=== PATIENT | female | born 1955 | race Caucasian/White ===

== ENCOUNTER 2019-12-08 12:31 | Inpatient (IN) | payer MEDICARE, SELFPAY ==
[2019-12-08 12:35] VITALS: BP 210/109; PULSE 82; RESP 18; O2SAT 97; BMI 38.6
--- NOTE | 2019-12-08 12:45 | ECG_ITS ---
Measurements Intervals [place] Rate: 78 P: 17 WA: 137 QRS: -11 QRSD: 90 T: 5 QT: 375 QTc: 430 SINUS RHYTHM LOW QRS VOLTAGE IN PRECORDIAL LEADS [QRS DEFLECTION < 1.0 mV IN CHEST LEADS] POSSIBLE ANTERIOR MYOCARDIAL INFARCTION , PROBABLY OLD [30 ms Q WAVE IN V3/V4, OR R < 0.2 mV IN V4] No previous ECG available for comparison Electronically Signed On 12-09-2019 18:13:10 CDT by Nazia Glass M.D. [email or web address]
--- NOTE | 2019-12-08 12:47 | ED_ITS ---
HPI - Psych General: Chief Complaint: Psychiatric Symptoms Stated Complaint: manic episode Time Seen by Provider: 12/08/19 12:35 History of Present Illness: HPI Narrative: Patient is a 64 year old female brought in by ambulance today for jc. She reports that she is hearing voices and can say the things that people on TV are saying at the say time that they do. She has pressured and disorganized speech and is crying over things that happened years ago. She is also hypertensive. She thinks that she is getting messages from appliances in her house. She says that a friend told her she is picking up radio transmissions through the fillings in her teeth. complaint: altered mental status Onset (ago): week(s) (at least a week) Duration: getting worse History of same: Yes (per EMS she is known to have a history of jc) Associated symptoms: Reports delusions Review of Systems General: Reports: ROS unobtainable due to mental status Physical Exam Const: COMMON NORMALS: alert EXAM LIMITATIONS: altered mental status GENERAL APPEARANCE: anxious and disheveled NUTRITIONAL APPEARANCE: obese ORIENTATION/CONSCIOUSNESS: Yes confused HENMT: HEAD & SCALP: normal to inspection FACE & SINUS: normal facial exam TEETH & GINGIVA: Yes abnormal tooth and associated gingiva (diffuse dental disease) Eye: GENERAL EYE: appearance normal, both eyes and all related structures CONJUNCTIVA: Yes conjunctival abnormal (injected) Neck/C-Spine: COMMON NORMALS: supple, no meningeal signs and no JVD Chest: COMMONS NORMALS: normal inspection of the chest Resp: COMMON NORMALS: normal respiratory effort, No use of accessory muscles and clear to auscultation bilaterally AUSCULTATION: clear to auscultation bilaterally Cardio: COMMON NORMALS: no JVD, regular rate, regular rhythm and No murmurs present (Cardio) RATE: regular rate RHYTHM: regular rhythm GI: COMMON NORMALS: Normal to inspection, nondistended, normoactive bowel sounds present, Soft to palpation and non-tender INSPECTION: Yes normal to inspection AUSCULTATION: Yes normoactive bowel sounds PALPATION: Yes Soft to palpation Back/Pelvis: COMMON NORMALS: thoracic and lumbar spine normal to inspection Extremity: COMMON NORMALS: normal to inspection Neuro: COMMON NORMALS: moves all extremities, no focal motor deficits and no sensory deficits noted SENSORIUM/ORIENTATION: Yes alert MENINGEAL SIGNS: Yes no meningeal signs Psych: APPEARANCE: Yes unkempt ATTITUDE: Yes bizarre and Yes agitated ACTIVITY/MOTOR BEHAVIOR: Yes psychomotor agitation, Yes disorganized behavior a nd Yes restless SPEECH: Yes excessive and Yes Pressured speech present MOOD & AFFECT: Yes tearful and Yes Labile affect present THOUGHT PROCESS: disorganized and Flight of ideas present THOUGHT CONTENT: Yes delusions and Yes Hallucination(s) present INSIGHT: Poor insight present (Psych) JUDGEMENT: Poor judgement present (Psych) Skin: COMMON NORMALS: no rashes or lesions noted and turgor normal GENERAL SKIN EXAM: no rashes or lesions noted and turgor normal MDM - Psych Lab Data: Labs: Lab Results 12/08/19 12/08/19 12/08/19 Range/Units 13:04 13:04 13:27 WBC 7.4 (4.0-10.0) 10^3/ uL RBC 5.04 (4.1-5.3) 10^6/u L Hgb 15.3 (11.5-15.3) g/dL Hct 47.6 H (37.0-47.0) % MCV 94.4 (81-99) fL MCH 30.4 (28.0-34.0) pg MCHC 32.1 (30.0-36.0) g/dL RDW 12.5 (12.1-15.1) % Plt Count 134 (130-400) 10^3/c mm MPV 9.6 (7.4-10.4) fL Neut % (Auto) 55.3 % Lymph % (Auto) 35.5 % [place] % (Auto) 7.8 % Eos % (Auto) 0.7 % Baso % (Auto) 0.4 % Neut # (Auto) 4.1 (1.8-7.7) 10^3/u L Lymph # (Auto) 2.6 (0.8-4.8) 10^3/u L [place] # (Auto) 0.6 (0.2-0.9) 10^3/u L Eos # (Auto) 0.1 (0.0-0.8) 10^3/u L Baso # (Auto) 0.0 (0.0-0.1) 10^3/u L Nucleated RBC % (a uto) 0 % Nucleated RBCs # 0.0 /100WBC Sodium 140 (136-145) mmol/L Potassium 3.5 (3.5-5.1) mmol/L Chloride 100 (98-107) mmol/L Carbon Dioxide 24 (22-29) mmol/L Anion Gap 19.5 H (5-19) BUN 7 L (8-23) mg/dL Creatinine 0.5 (0.5-0.9) mg/dL GFR Calculation 123.8 (90-130) mL/min Glucose 243 H (65-115) mg/dL Calculated Osmolal ity 294 (285-295) mOsm/k g Calcium 9.5 (8.5-10.5) mg/dL Total Bilirubin 0.9 (0.15-1.2) mg/dL AST 21 (0-32) U/L ALT 23 (0-33) U/L Alkaline Phosphata se 102 (35-105) IU/L Total Protein 6.8 (6.6-8.7) g/dL Albumin 4.2 (3.5-5.2) g/dL Globulin 2.6 (1.3-4.6) g/dL TSH 1.28 (0.27-4.20) uIU/ mL Urine Color Yellow (Yellow) Urine Appearance Hazy A (CLEAR) Urine pH 6 (5-7) Ur Specific Gravit y 1.015 (1.005-1.030) Urine Protein 1+ H (Negative) Urine Glucose (UA) 4+ H (Normal) Urine Ketones 1+ H (Negative) Urine Blood Neg (Negative) Urine Nitrate Negative (Negative) Urine Bilirubin Neg (NEGATIVE) Urine Urobilinogen Norm (Negative) mg/dL Ur Leukocyte Kadie ase Negative (Negative) Urine RBC 0-4 H (0-2) /hpf Urine WBC 0-4 H (0-5) /hpf Ur Squamous Epith Cells 0-4 H (0-5) Urine Bacteria 1+ H (NONE) Salicylates < 0.3 L (3-10) mg/dL Acetaminophen < 5.0 L (10-30) ug/mL Ethyl Alcohol < 10 (0-10) mg/dL EKG Data^: EKG 1: EKG interpretation date: 12/08/19 EKG interpretation time: 13:12 Interpretation: sinus rhythm, rate 78, artifact. No acute ischemia. Normal intervals. Discharge Plan Discharge Patient Disposition: Admitted As Inpatient Admit Provider: Miguel Camejo Clinical Impression: Acute psychosis Condition: Stable Referrals: Connie Kumar MD [Family Provider] - Discharge Date/Time: 12/08/19 15:18 Coding Level of Care Code ED Pressure Testing Technician for Chg Fwd Exam Comprehensive
[2019-12-08 13:12] LABS: Basophils % 0.4 %; Eosinophils # 0.1 10^3/uL (0.0-0.8); Eosinophils % 0.7 %; Hematocrit 47.6 % (37.0-47.0); Hemoglobin 15.3 g/dL (11.5-15.3); Lymphocytes # 2.6 10^3/uL (0.8-4.8); Lymphocytes % 35.5 %; Mean Corpuscular HGB Conc 32.1 g/dL (30.0-36.0); Mean Corpuscular Hemoglobin 30.4 pg (28.0-34.0); Mean Corpuscular Volume 94.4 fL (81-99); Mean Platelet Volume 9.6 fL (7.4-10.4); Monocytes # 0.6 10^3/uL (0.2-0.9); Monocytes % 7.8 %; Neutrophils # 4.1 10^3/uL (1.8-7.7); Neutrophils % 55.3 %; Nucleated Red Blood Cells % 0 %; Platelet Count 134 10^3/cmm (130-400); Red Blood Count 5.04 10^6/uL (4.1-5.3); Red Cell Distribution Width 12.5 % (12.1-15.1); White Blood Count 7.4 10^3/uL (4.0-10.0)
[2019-12-08] MEDS: ziprasidone 20 mg/mL SDV IM (13:33)
[2019-12-08] MEDS: metoprolol tartrate 1 mg/1 mL SDV 5 mL 5 MG IV (13:33)
[2019-12-08 13:53] LABS: Alanine Aminotransferase 23 U/L (0-33); Albumin Level 4.2 g/dL (3.5-5.2); Alkaline Phosphatase 102 IU/L (35-105); Anion Gap 19.5 (5-19); Aspartate Amino Transferase 21 U/L (0-32); Blood Urea Nitrogen 7 mg/dL (8-23); Calcium 9.5 mg/dL (8.5-10.5); Carbon Dioxide 24 mmol/L (22-29); Chloride 100 mmol/L (98-107); Globulin 2.6 g/dL (1.3-4.6); Glomerular Filtration Rate 123.8 mL/min (90-130); Glucose 243 mg/dL (65-115); Osmolality Calculated 294 mOsm/kg (285-295); Potassium 3.5 mmol/L (3.5-5.1); Sodium 140 mmol/L (136-145); Thyroid Stimulating Hormone 1.28 uIU/mL (0.27-4.20); Total Bilirubin 0.9 mg/dL (0.15-1.2); Total Protein 6.8 g/dL (6.6-8.7)
[2019-12-08 13:56] LABS: Acetaminophen < 5.0 ug/mL (10-30); Alcohol Level < 10 mg/dL (0-10); Salicylate < 0.3 mg/dL (3-10)
[2019-12-08 14:28] LABS: Add Urine Microscopic? YES; Bilirubin Urine Neg (NEGATIVE); Blood Urine Neg (Negative); Glucose Urine UA 4+ (Normal); Ketones Urine 1+ (Negative); Leukocyte Esterase Urine Negative (Negative); Nitrate Urine Negative (Negative); Protein Urine 1+ (Negative); Specific Gravity, Urine 1.015 (1.005-1.030); Urine Appearance Hazy (CLEAR); Urine Color Yellow (Yellow); Urobilinogen Urine Norm (Negative); pH Urine 6 (5-7)
[2019-12-08 14:44] LABS: Add Urine Culture? No; Bacteria Urine 1+; RBC Urine 0-4 /hpf (0-2); Squamous Epithelial Cell Urine 0-4 (0-5); WBC Urine 0-4 /hpf (0-5)
[2019-12-08 14:53] VITALS: BP 124/71; PULSE 76; RESP 18; O2SAT 94
--- NOTE | 2019-12-08 14:54 | PC.NURSE ---
PT SLEEPING, RESP EVEN ET UNLABORED.
[2019-12-08 15:12] VITALS: BP 125/85; PULSE 76; RESP 18; O2SAT 94
[2019-12-08 15:36] VITALS: BP 137/73; PULSE 64; RESP 18; TEMP 36.6; O2SAT 96
[2019-12-08 15:40] LABS: Amphetamines Screen Urine Negative (Negative); Barbiturates Screen Urine Negative (Negative); Benzodiazepines Screen Urine Negative (Negative); Cocaine Screen Urine Negative (Negative); Opiate Screen Urine Negative (Negative); PCP Screen Urine Negative (Negative); THC Screen Urine Negative (Negative)
[2019-12-08 15:50] VITALS: BP 137/73; PULSE 64; RESP 18; TEMP 36.6; O2SAT 96
[2019-12-08 19:45] LABS: Glucose Point of Care 158 mg/dL (70-110)
[2019-12-08 21:52] VITALS: BP 169/87; PULSE 75; RESP 23; TEMP 36.8; O2SAT 97
[2019-12-09 05:01] LABS: Glucose Point of Care 187 mg/dL (70-110)
[2019-12-09 06:00] VITALS: BP 154/81; PULSE 100; RESP 26; TEMP 37.1; O2SAT 97
[2019-12-09 07:32] LABS: Glucose Point of Care 192 mg/dL (70-110)
--- NOTE | 2019-12-09 09:53 | PM.NHP ---
Providers/Chief Complaint Admitting Physician: Miguel Camejo MD Chief Complaint: manic episode HPI NPU History of Present Illness Татьяна Vang is a 64 year old female who presents today with a long history of mental health treatment going back some 14 years with [facility]. She presents with some discharge papers from [facility] with the current report of a diagnosis of dementia and recent initiation of donepezil. She presents as a fairly challenging historian as she is fairly frantic and focused on topics that do not make much sense. She continued to report wanting to speak to some zoroastrianism figure stating that somehow their conversation would explain her current circumstance. She was able to talk some about past medications. She has prior diagnoses of ADHD and major depressive disorder recurrent severe. She continued to speak about not being able to focus. We discussed the risks, benefits and alternatives of initiating Invega for her apparent jc and she appeared to understand and agreed to proceed as is documented in this note. Psychiatric history: She endorses the recent hospitalization but could not endorse none other. She has a long history of mental health treatment but seemed to be fairly stable on medications and was functioning fairly. Substance abuse history: She denies significant addiction issues and none were noted the chart reviewed. The remainder of her history was difficult to uncover. We will attempt to get some collateral information with as she is reportedly . Meds NPU Home Medications Medication Instructions Recorded Confirmed Last Taken Type amlodipine 10 mg PO DAILY 12/08/19 12/08/19 Unknown History clonidine HCl 0.1 mg PO BID 12/08/19 12/08/19 Unknown History donepezil 5 mg PO DAILY 12/08/19 12/08/19 Unknown History glipizide 10 mg PO BID 12/08/19 12/08/19 Unknown History insulin aspart U-100 [Novolog See Rx Instructions .ROUTE .COMPLEX 12/08/19 12/08/19 Unknown History U-100 Insulin aspart] insulin detemir U-100 [Levemir 57 unit SUBCUT BID 12/08/19 12/08/19 Unknown History U-100 Insulin] levothyroxine 75 mcg PO DAILY 12/08/19 12/08/19 Unknown History lisinopril 40 mg PO DAILY 12/08/19 12/08/19 Unknown History metformin 1,000 mg PO BID 12/08/19 12/08/19 Unknown History metoprolol tartrate See Rx Instructions .ROUTE .COMPLEX 12/08/19 12/08/19 Unknown History potassium chloride 20 meq PO BID 12/08/19 12/08/19 Unknown History pravastatin 40 mg PO DAILY 12/08/19 12/08/19 Unknown History Allergies Allergy/AdvReac Type Severity Reaction Status Date / Time butorphanol [From Stadol] Allergy Unknown ALGY-Hives Verified 12/08/19 12:46 codeine Allergy ALGY-Rash Verified 12/08/19 12:47 latex Allergy ALGY-Rash Verified 12/08/19 12:47 PFSH NPU PFSH: Medical History (Updated 12/10/19 @ 06:12 by Miguel Camejo MD) HTN (hypertension) Hyperlipidemia Hypothyroidism Insulin dependent diabetes mellitus Morbid obesity Surgical History (Updated 12/09/19 @ 19:33 by Migdalia Neves MD) H/O section x 2 H/O tooth extraction History of dilation and curettage Secondary to missed History of evacuation of hematoma -Abdominal wall Family History (Updated 12/09/19 @ 19:34 by Migdalia Neves MD) Father Carotid artery stenosis Mother Abdominal aortic aneurysm Grandfather Stroke Other Psychiatric illness Social History (Updated 12/09/19 @ 19:35 by Migdalia Neves MD) Smoking and tobacco status: never smoked Alcohol intake: never Substance/Drug Use: never 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 No abnormal movements except for psychomotor agitation. Semicooperative with exam in mild to moderate distress. Speech was increased rate and volume with stuttering due to her rapid speech. Mood described as depressed affect energetic. Thought process disorganized at times thought content: Patient denied any suicidal or homicidal ideation, there were no delusions reported or noted but there were concerns for possible hyperreligious thoughts. She denied any auditory visual hallucinations. Attention and concentration were impaired and memory was unreliable but none were formally tested. She is alert and oriented times person and place. Insight and judgment are impaired. Vitals/I&O/Wt Last Vital Signs Temp 98.9 F 12/09/19 13:39 Pulse 120 H 12/09/19 13:39 Resp 20 H 12/09/19 13:39 BP 180/93 12/09/19 13:39 Pulse Ox 98 05/22/20 13:39 Weight last 48 hrs Weight 102.058 kg Data NPU : 12/08/19 13:04 12/08/19 13:04 A&P Assessment and plan (1) Acute psychosis: This is a 64-year-old white female with a recent hospitalization with a reported diagnosis of dementia and a long history of mood disorder who presents with altered mental status appearing manic open to medication trial. 1. Continue current medication. Except: 2. Initiate Invega 3 mg p.o. q. a.m. 3. Continue to 15-minute checks for safety. 4. Encouraged individual, group and milieu therapy. 5. Get hospitalist consult concerning diabetes management, hypertension management and consideration of a possible UTI. We will follow-up recommendations. Status: Acute (2) Jc: Status: Acute (3) Dementia: Status: Acute Attestations NPU Medical Necessity Statement*: Inpatient hospitalization is medically necessary and the clinically appropriate intervention at this time. We will explore medication options and monitor and make changes as indicated. She will be in the hospital for over 2 midnights. Likely length of stay 4 to 6 days. 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
[2019-12-09 11:37] LABS: Glucose Point of Care 306 mg/dL (70-110)
[2019-12-09 13:39] VITALS: BP 180/93; PULSE 120; RESP 20; TEMP 37.2; O2SAT 98
[2019-12-09 14:19] VITALS: BP 180/93
[2019-12-09] MEDS: cloNIDine 0.1 mg Tablet PO (14:19)
[2019-12-09] MEDS: blistex lip oint 7 gm Tube 1 APPLIC TOPICAL (14:20)
[2019-12-09] MEDS: lisinopril 20 mg Tablet 40 MG PO (14:20)
--- NOTE | 2019-12-09 15:59 | PM.CONSULT ---
Providers/Reason For Consult Consulting Physican/Specialty*: Migdalia Neves MD, Hospitalist Reason for Consult*: Medical management of HTN, IDDM type II Requesting Physcian: Dr. Camejo Attending Physician: Miguel Camejo MD History of Present Illness History of Present Illness Татьяна Vang is a 64 year old female with PMHx of HTN, IDDM type II, Morbid obesity, Hypothyroidism, Hyperlipidemia, presented to the ER yesterday for evaluation of auditory hallucinations, pressured rapid speech, emotional lability and delusions. She was then admitted directly to NPU where she has been managed by psychiatry. Hospitalist consult is requested today due to noted hypertension and poorly controlled blood glucose. Patient is evaluated in NPU and is difficult to keep on track during history taking. She has rapid and pressured speech, admits to hearing voices, thinks that she is receiving radio transmissions through the feelings in her teeth, has been predicting plane crashes will happen soon. She is able to tell me that she has been trying to be compliant with her medications but due to cost issues has been unable to consistently take insulin. Her blood pressure has been as high as 210/109 with latest reading being 174/81. Blood sugars have ranged from 158->306. Review of Systems Const: Denies: fever(s) or chills Eyes: Denies: change in vision ENMT: Reports: dry mouth Card: Denies: chest pain, swelling of feet/ankles or lightheadedness Resp: Denies: dyspnea GI: Denies: abdominal pain, nausea, vomiting, hematemesis or hematochezia : Denies: difficulty voiding or dysuria Musc: Denies: back pain Skin/Breast: Denies: rash Neuro: Denies: difficulty walking Psych: Reports: other (hyper-verbal) Meds/Allergies Home Medications and Allergies Home Medications Medication Instructions Recorded Confirmed Last Taken Type amlodipine 10 mg PO DAILY 12/08/19 12/08/19 Unknown History clonidine HCl 0.1 mg PO BID 12/08/19 12/08/19 Unknown History donepezil 5 mg PO DAILY 12/08/19 12/08/19 Unknown History glipizide 10 mg PO BID 12/08/19 12/08/19 Unknown History insulin aspart U-100 [Novolog See Rx Instructions .ROUTE .COMPLEX 12/08/19 12/08/19 Unknown History U-100 Insulin aspart] insulin detemir U-100 [Levemir 57 unit SUBCUT BID 12/08/19 12/08/19 Unknown History U-100 Insulin] levothyroxine 75 mcg PO DAILY 12/08/19 12/08/19 Unknown History lisinopril 40 mg PO DAILY 12/08/19 12/08/19 Unknown History metformin 1,000 mg PO BID 12/08/19 12/08/19 Unknown History metoprolol tartrate See Rx Instructions .ROUTE .COMPLEX 12/08/19 12/08/19 Unknown History potassium chloride 20 meq PO BID 12/08/19 12/08/19 Unknown History pravastatin 40 mg PO DAILY 12/08/19 12/08/19 Unknown History Allergies Allergy/AdvReac Type Severity Reaction Status Date / Time butorphanol [From Stadol] Allergy Unknown ALGY-Hives Verified 12/08/19 12:46 codeine Allergy ALGY-Rash Verified 12/08/19 12:47 latex Allergy ALGY-Rash Verified 12/08/19 12:47 Current Medications Current Medications Generic Name Dose Route Start Last Admin Trade Name Freq PRN Reason Stop Dose Admin Amlodipine Besylate 10 mg 12/09/19 13:45 12/09/19 15:28 Norvasc PO Not Given DAILY YAIMA Camphor/Menthol/Phenol 1 applic 12/08/19 15:50 12/09/19 14:20 Blistex TOPICAL 1 applic Q1H PRN Administration DRYNESS Lisinopril 40 mg 12/09/19 14:00 12/09/19 14:20 Prinivil PO 40 mg DAILY YAIMA Administration PFSH Acute PFSH: Medical History (Updated 12/09/19 @ 19:40 by Migdalia Neves MD) HTN (hypertension) Hyperlipidemia Hypothyroidism Insulin dependent diabetes mellitus Morbid obesity Surgical History (Updated 12/09/19 @ 19:33 by Migdalia Neves MD) H/O section x 2 H/O tooth extraction History of dilation and curettage Secondary to missed History of evacuation of hematoma -Abdominal wall Family History (Updated 12/09/19 @ 19:34 by Migdalia Neves MD) Father Carotid artery stenosis Mother Abdominal aortic aneurysm Grandfather Stroke Other Psychiatric illness Social History (Updated 12/09/19 @ 19:35 by Migdalia Neves MD) Smoking and tobacco status: never smoked Alcohol intake: never Substance/Drug Use: never 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 Vitals/I&O/Wt Last Vital Signs Temp 98.9 F 12/09/19 13:39 Pulse 120 H 12/09/19 13:39 Resp 20 H 12/09/19 13:39 BP 180/93 12/09/19 14:19 Pulse Ox 98 12/09/19 13:39 Weight last 48 hrs Weight 102.058 kg Physical Exam Const: COMMON NORMALS: no acute distress, patient oriented x3 and alert GENERAL APPEARANCE: cooperative, comfortable and anxious NUTRITIONAL APPEARANCE: obese morbidly obese ORIENTATION/CONSCIOUSNESS: Yes awake HENMT: COMMON NORMALS: normocephalic, atraumatic, hearing grossly normal bilaterally and moist oral mucous membranes HEAD & SCALP: normocephalic and atraumatic TEETH & GINGIVA: Yes poor dentition Eye: COMMON NORMALS: Equal, round and reactive pupils present, EOMs intact bilaterally and conjunctivae normal CONJUNCTIVA: Yes conjunctivae normal PUPIL: Yes Equal, round and reactive pupils present Neck/C-Spine: COMMON NORMALS: full ROM GENERAL: Yes normal visual inspection and Yes trachea midline OTHER: -short, thick neck Resp: COMMON NORMALS: normal respiratory effort, No retractions, No use of accessory muscles and clear to auscultation bilaterally EFFORT & INSPECTION: Yes able to speak in complete sentences, Yes symmetric chest movement and No tachypneic AUSCULTATION: clear to auscultation bilaterally Cardio: COMMON NORMALS: regular rate, regular rhythm, S1 normal heart sound present, S2 normal heart sound present and No murmurs present (Cardio) RATE: regular rate RHYTHM: regular rhythm HEART SOUNDS: S1 normal heart sound present and S2 normal heart sound present GI: COMMON NORMALS: Normal to inspection, nondistended, normoactive bowel sounds present, Soft to palpation and non-tender INSPECTION: Yes central obesity and Yes scar (vertical scar crossing umbilicus) PALPATION: Yes Soft to palpation Extremity: COMMON NORMALS: normal to inspection, full ROM, no clubbing, cyanosis or edema and no pedal edema Neuro: COMMON NORMALS: patient oriented x3, moves all extremities, no focal motor deficits and no sensory deficits noted SENSORIUM/ORIENTATION: Yes alert Psych: COMMON NORMALS: cooperative ACTIVITY/MOTOR BEHAVIOR: Yes hyperactivity SPEECH: Yes rapid and Yes Pressured speech present MOOD & AFFECT: Yes anxious THOUGHT PROCESS: racing thoughts ATTENTION/CONCENTRATION: Yes attention grossly intact Skin: COMMON NORMALS: no rashes or lesions noted, no jaundice, no petechiae and no mottling GENERAL SKIN EXAM: no rashes or lesions noted A&P Assessment and plan (1) Acute psychosis: -acutely manic -per Psychiatry Status: Acute (2) Insulin dependent diabetes mellitus: -check A1c -Accucheks, hypoglycemia precautions, scheduled insulin, metformin, glimeperide (glipize not on formulary) -consistent carb diet -due to cost has been off insulin therapy Status: Chronic (3) HTN (hypertension): -monitor vital signs -continue Lisinopril 40 mg daily, Amlodipine 10 mg daily, metoprolol, increase clonidine Status: Chronic Qualifiers: Hypertension type: essential hypertension Qualified Code(s): I10 - Essential (primary) hypertension (4) Hypothyroidism: -continue levothyroxine Status: Chronic Qualifiers: Hypothyroidism type: unspecified Qualified Code(s): E03.9 - Hypothyroidism, unspecified (5) Morbid obesity: -BMI-39 kg/m2 Status: Chronic (6) Hyperlipidemia: -continue statin Status: Chronic Qualifiers: Hyperlipidemia type: unspecified Qualified Code(s): E78.5 - Hyperlipidemia, unspecified Additional A&P Information -Dispo: per psychiatry Thank you for this consult, will continue to follow along with you Consult Attestations Medical Necessity Statement: Patient requires hospitalization for continued management of acute jc, psychosis; improved BP and BG control. Time Spent in Patient Care: Greater than 35 minutes (>than 50% of time spent in counselling and/or direct pt care on unit). Coding Level of Care Code Acute Dental Ceramist for [facility] Fwd Exam Comprehensive Diagnoses Acute psychosis F23 Insulin dependent diabetes mellitus HTN (hypertension) I10 Hypertension type: essential hypertension Hypothyroidism E03.9 Hypothyroidism type: unspecified Morbid obesity E66.01 Hyperlipidemia E78.5 Hyperlipidemia type: unspecified
[2019-12-09 17:03] LABS: Glucose Point of Care 278 mg/dL (70-110)
[2019-12-09] MEDS: metoprolol tartrate 50 mg Tablet PO (17:48)
[2019-12-09] MEDS: metformin 500 mg Tablet 1000 MG PO (17:48)
[2019-12-09 17:50] VITALS: BP 174/81
[2019-12-09] MEDS: cloNIDine 0.1 mg Tablet 0.2 MG PO (17:50)
[2019-12-09] MEDS: paliperidone ER 3 mg Tablet PO (18:03)
[2019-12-09 19:51] LABS: Glucose Point of Care 389 mg/dL (70-110)
[2019-12-09] MEDS: donepezil 5 MG Tablet PO (20:30)
[2019-12-09 21:55] VITALS: BP 134/85; PULSE 102; RESP 26; TEMP 37.3; O2SAT 96
[2019-12-10 06:00] VITALS: BP 100/70; PULSE 59; RESP 21; TEMP 36.9; O2SAT 97
[2019-12-10 06:16] LABS: Add Urine Microscopic? YES; Bilirubin Urine 1+ (NEGATIVE); Blood Urine 2+ (Negative); Glucose Urine UA 4+ (Normal); Ketones Urine 2+ (Negative); Leukocyte Esterase Urine Negative (Negative); Nitrate Urine Negative (Negative); Protein Urine 3+ (Negative); Urine Color Yellow (Yellow); Urobilinogen Urine Norm (Negative); pH Urine 5 (5-7)
[2019-12-10 06:23] LABS: Bacteria Urine 2+; Mucus Urine 1+; RBC Urine 0-4 /hpf (0-2)
[2019-12-10 06:23] LABS: Glucose Point of Care 256 mg/dL (70-110)
[2019-12-10 06:24] LABS: Add Urine Culture? Yes
[2019-12-10 06:36] LABS: Estmated Average Glucose 194; Hemoglobin A1C 8.4 % (4.0-6.0)
[2019-12-10] MEDS: glimepiride 2 mg Tablet PO ×2 (06:36→17:53)
[2019-12-10] MEDS: metformin 500 mg Tablet 1000 MG PO ×2 (08:34→17:53)
[2019-12-10] MEDS: levothyroxine 25 mcg Tablet 75 MCG PO (08:34)
[2019-12-10] MEDS: atorvastatin 40 mg Tablet 20 MG PO (08:36)
[2019-12-10 08:37] VITALS: BP 104/57
[2019-12-10] MEDS: paliperidone ER 3 mg Tablet PO (08:38)
--- NOTE | 2019-12-10 08:38 | PC.NURSE ---
PATIENT'S BP WAS LOW AT104/58. 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 D/T DECREASED BP. DR FAGAN.
[2019-12-10 11:12] LABS: Glucose Point of Care 319 mg/dL (70-110)
--- NOTE | 2019-12-10 11:33 | PM.PN ---
Subjective Subjective: Interval history: Blood pressure controlled, Accu-Cheks reviewed with continued hyperglycemia. A1c 8.4. Most recent Accu-Chek is 319, will give an extra dose of 10 units short acting insulin. BP meds held by nurse due to noted low normal BP. Patient resting in bed, speech seems to be less pressured. No acute overnight events reported. Unable to tell me if she has had dysuria, hematuria; she is incontinent. Medications: Reviewed: Yes Medication Review Details: Active Medications Generic Name Dose Route Start Last Admin Trade Name Freq PRN Reason Stop Dose Admin Acetaminophen 650 mg 12/08/19 15:50 Tylenol PO Q4H PRN MILD PAIN Amlodipine Besylat e 10 mg 12/09/19 13:45 12/10/19 10:15 Norvasc PO Not Given DAILY YAIMA Atorvastatin Calci um 20 mg 12/10/19 09:00 12/10/19 08:36 Lipitor PO 20 mg DAILY YAIMA Administration Benztropine Mesyla te 1 mg 12/08/19 15:50 Cogentin PO BID PRN Mild Extrapyramid al symptoms Camphor/Menthol/Ph enol 1 applic 12/08/19 15:50 12/09/19 14:20 Blistex TOPICAL 1 applic Q1H PRN Administration DRYNESS Clonidine HCl 0.2 mg 12/09/19 18:00 12/10/19 08:37 Catapres PO Not Given BID YAIMA Diphenhydramine HC l 50 mg 12/08/19 15:50 Benadryl IM ONCE PRN Severe Extrapyram idal Symptoms Diphenhydramine HC l 50 mg 12/08/19 15:50 Benadryl IM Q4H PRN Severe Aggression Donepezil HCl 5 mg 12/09/19 21:00 12/09/19 20:30 Aricept PO 5 mg BEDTIME YAIMA Administration Glimepiride 2 mg 12/10/19 07:00 12/10/19 06:36 Amaryl PO 2 mg BIDAC YAIMA Administration Haloperidol 5 mg 12/08/19 15:50 Haldol PO Q4H PRN AGITATION Haloperidol Lactat e 5 mg 12/08/19 15:50 Haldol Inj IM Q4H PRN Severe Aggression Hydroxyzine Pamoat e 50 mg 12/08/19 15:50 Vistaril PO Q6H PRN ANXIETY Insulin Aspart 10 unit 12/10/19 07:00 12/10/19 08:31 Novolog SUBCUT 10 unit TIDAC YAIMA Administration Insulin Detemir 40 unit 12/09/19 21:00 12/09/19 20:28 Levemir SUBCUT 40 unit BEDTIME YAIMA Administration Levothyroxine Sodi um 75 mcg 12/10/19 09:00 12/10/19 08:34 Synthroid PO 75 mcg DAILY [facility] Administration Lisinopril 40 mg 12/09/19 14:00 12/10/19 08:34 Prinivil PO Not Given DAILY [facility] Loperamide HCl 2 mg 12/08/19 15:50 Imodium Capsule PO Q6H PRN DIARRHEA Lorazepam 2 mg 12/08/19 15:50 Ativan IM Q4H PRN Severe Aggression Metformin HCl 1,000 mg 12/09/19 18:00 12/10/19 08:34 Glucophage PO 1,000 mg BID [facility] Administration Metoprolol Tartrat e 100 mg 12/10/19 09:00 12/10/19 08:38 Lopressor PO Not Given BID [facility] Nicotine 1 patch 12/08/19 15:50 Nicoderm 21 Mg P atch TRANSDERMA DAILY PRN NICOTINE WITHDRAW AL Nicotine Polacrile x 2 mg 12/08/19 15:50 Nicorette BUCCAL Q2H PRN NICOTINE WITHDRAW AL Olanzapine 5 mg 12/08/19 15:50 Zyprexa Zydis PO Q4H PRN Agitation/Psychos is Ondansetron HCl 4 mg 12/08/19 15:50 Zofran PO Q6H PRN NAUSEA AND VOMITI NG Paliperidone 3 mg 12/09/19 17:54 12/10/19 08:38 Invega PO 3 mg DAILY [facility] Administration Trazodone HCl 50 mg 12/08/19 15:50 Desyrel PO BEDTIME PRN SLEEP butorphanol [From Stadol] Allergy (Unknown, Verified 12/08/19 12:46) ALGY-Hives codeine Allergy (Verified 12/08/19 12:47) ALGY-Rash latex Allergy (Verified 12/08/19 12:47) ALGY-Rash Vitals/I&O/Wt Last Vital Signs Temp 98.5 F 12/10/19 06:00 Pulse 59 L 12/10/19 06:00 Resp 21 H 12/10/19 06:00 BP 104/57 12/10/19 08:37 Pulse Ox 97 12/10/19 06:00 Weight last 48 hrs Weight 102.058 kg Physical Exam Const: COMMON NORMALS: no acute distress, patient oriented x3 and alert GENERAL APPEARANCE: cooperative, comfortable and anxious NUTRITIONAL APPEARANCE: obese morbidly obese ORIENTATION/CONSCIOUSNESS: Yes awake HENMT: COMMON NORMALS: normocephalic, atraumatic, hearing grossly normal bilaterally and moist oral mucous membranes HEAD & SCALP: normocephalic and atraumatic TEETH & GINGIVA: Yes poor dentition Eye: COMMON NORMALS: Equal, round and reactive pupils present, EOMs intact bilaterally and conjunctivae normal CONJUNCTIVA: Yes conjunctivae normal PUPIL: Yes Equal, round and reactive pupils present Neck/C-Spine: COMMON NORMALS: full ROM GENERAL: Yes normal visual inspection and Yes trachea midline OTHER: -short, thick neck Resp: COMMON NORMALS: normal respiratory effort, No retractions, No use of accessory muscles and clear to auscultation bilaterally EFFORT & INSPECTION: Yes able to speak in complete sentences, Yes symmetric chest movement and No tachypneic AUSCULTATION: clear to auscultation bilaterally Cardio: COMMON NORMALS: regular rate, regular rhythm, S1 normal heart sound present, S2 normal heart sound present and No murmurs present (Cardio) RATE: regular rate RHYTHM: regular rhythm HEART SOUNDS: S1 normal heart sound present and S2 normal heart sound present GI: COMMON NORMALS: Normal to inspection, nondistended, normoactive bowel sounds present, Soft to palpation and non-tender INSPECTION: Yes central obesity and Yes scar (vertical scar crossing umbilicus) PALPATION: Yes Soft to palpation Extremity: COMMON NORMALS: normal to inspection, full ROM, no clubbing, cyanosis or edema and no pedal edema Neuro: COMMON NORMALS: patient oriented x3, moves all extremities, no focal motor deficits and no sensory deficits noted SENSORIUM/ORIENTATION: Yes alert Psych: COMMON NORMALS: cooperative ACTIVITY/MOTOR BEHAVIOR: Yes hyperactivity SPEECH: Yes rapid and Yes Pressured speech present MOOD & AFFECT: Yes anxious THOUGHT PROCESS: racing thoughts ATTENTION/CONCENTRATION: Yes attention grossly intact Skin: COMMON NORMALS: no rashes or lesions noted, no jaundice, no petechiae and no mottling GENERAL SKIN EXAM: no rashes or lesions noted Data : 12/08/19 13:04 12/08/19 13:04 A&P Assessment and plan (1) Acute psychosis: -acutely manic -per Psychiatry Status: Acute (2) Insulin dependent diabetes mellitus: -A1c-8.4/eAG-194 -Accucheks, hypoglycemia precautions, scheduled insulin, metformin, glimeperide (glipize not on formulary) -consistent carb diet -due to cost has been off insulin therapy Status: Chronic (3) HTN (hypertension): -continue to monitor vital signs; BP controlled, monitor for hypotension -continue Lisinopril 40 mg daily, Amlodipine 10 mg daily, metoprolol, clonidine Status: Chronic Qualifiers: Hypertension type: essential hypertension Qualified Code(s): I10 - Essential (primary) hypertension (4) Hypothyroidism: -continue levothyroxine Status: Chronic Qualifiers: Hypothyroidism type: unspecified Qualified Code(s): E03.9 - Hypothyroidism, unspecified (5) Morbid obesity: -BMI-39 kg/m2 Status: Chronic (6) Hyperlipidemia: -continue statin Status: Chronic Qualifiers: Hyperlipidemia type: unspecified Qualified Code(s): E78.5 - Hyperlipidemia, unspecified Additional A&P Information -repeat UA noted, contaminated sample, + bacteria; would not treat unless patient is symptomatic -Dispo: per psychiatry Attestations Medical Necessity Statement*: Patient requires hospitalization for continued inpatient psychiatric management of acute psychosis. Time Spent in Patient Care: 16 - 35 minutes Coding Level of Care Code Acute Traffic Inspector for [facility] Fwd Exam Comprehensive Diagnoses Acute psychosis F23 Insulin dependent diabetes mellitus HTN (hypertension) I10 Hypertension type: essential hypertension Hypothyroidism E03.9 Hypothyroidism type: unspecified Morbid obesity E66.01 Hyperlipidemia E78.5 Hyperlipidemia type: unspecified
--- NOTE | 2019-12-10 12:55 | P.PN_ITS ---
Subjective NPU Subjective: Interval history: Татьяна presents today reporting that she is doing a little better and being a little more coherent in her conversational tone. We are following the hospitalist direction as far as her overall medical care and she reports that she is doing okay with the Invega. She reports she is eating a little better and sleeping a little better. Still having some accidents as far as her urination. Mental Status Exam MSE Comments: This is an obese older white female with limited dress, grooming and eye contact. No abnormal movements except for improving psychomotor agitation. More cooperative with exam in less distress. Speech was normal rate and volume. Mood described as depressed affect congruent. Thought process more organized at times thought content: Patient denied any suicidal or homicidal ideation, there were no delusions reported or noted. She denied any auditory visual hallucinations. Attention and concentration were improved and memory was more reliable but none were formally tested. She is alert and oriented times person and place. Insight and judgment are improving. Vitals/I&O/Wt Last Vital Signs Temp 99.1 F 12/09/19 21:55 Pulse 102 H 12/09/19 21:55 Resp 26 H 12/09/19 21:55 BP 134/85 12/09/19 21:55 Pulse Ox 96 12/09/19 21:55 Weight last 48 hrs Weight 102.058 kg Data NPU : 12/08/19 13:04 12/08/19 13:04 A&P Additional A&P Information (1) Acute psychosis: This is a 64-year-old white female with a recent hospitalization with a reported diagnosis of dementia and a long history of mood disorder who presents with altered mental status appearing manic open to medication trial. 1. Continue current medication. 2. Continue to 15-minute checks for safety. 3. Encouraged individual, group and milieu therapy. 4. Appreciate consult concerning diabetes management, hypertension management. We will follow-up recommendations. (2) Lalitha: (3) Dementia: Attestations NPU Medical Necessity Statement*: Inpatient hospitalization is medically necessary and the clinically appropriate intervention at this time. We will explore medication options and monitor and make changes as indicated. Likely length of stay 3-5 days. 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
[2019-12-10 14:00] VITALS: BP 109/82; PULSE 78; RESP 18; TEMP 37.1
[2019-12-10 17:05] LABS: Glucose Point of Care 232 mg/dL (70-110)
[2019-12-10 17:54] VITALS: BP 109/52
[2019-12-10 20:09] LABS: Glucose Point of Care 339 mg/dL (70-110)
[2019-12-10] MEDS: donepezil 5 MG Tablet PO (21:01)
[2019-12-10 22:00] VITALS: BP 136/86; PULSE 96; RESP 19; TEMP 36.7; O2SAT 98
--- NOTE | 2019-12-11 04:15 | PC.NURSE ---
BEHAVIOR PT PUT ON HER CALL LIGHT AND STATED SHE HAD WET THE BED. AFTER CHANGING THE PT SHE STATED SHE COULD NOT STOP THE POUNDING/RACING THOUGHTS IN HER HEAD. BP 129/78, PULSE 127, RR 19, O2 96, BS 319. PT IS NOW RESTING IN BED AND STATES SHE IS DOING A LITTLE BETTER. WILL CONTINUE TO MONITOR PT.
[2019-12-11 04:19] LABS: Glucose Point of Care 319 mg/dL (70-110)
[2019-12-11 06:00] VITALS: BP 129/78; PULSE 128; RESP 18; TEMP 36.8; O2SAT 95
[2019-12-11] MEDS: glimepiride 2 mg Tablet PO ×2 (06:33→17:40)
[2019-12-11] MEDS: metoprolol succinate ER (24 HR) 50 mg Tablet 100 MG PO (06:33)
[2019-12-11 06:34] LABS: Glucose Point of Care 404 mg/dL (70-110)
[2019-12-11] MEDS: atorvastatin 40 mg Tablet 20 MG PO (10:03)
[2019-12-11] MEDS: levothyroxine 25 mcg Tablet 75 MCG PO (10:04)
[2019-12-11] MEDS: metformin 500 mg Tablet 1000 MG PO ×2 (10:04→17:39)
[2019-12-11] MEDS: paliperidone ER 3 mg Tablet PO (10:04)
--- NOTE | 2019-12-11 10:46 | PM.NPN ---
Subjective NPU Subjective: Interval history: Татьяна presents today continuing to show slow with steady improvement in her mental status. Today he majority of the conversation was intelligible with direction and without confusion. We had discussed the possibility of increasing her Invega, however with her diabetes even more so the likely adage of lowest effective dose should likely be followed. She endorsed feeling better and feeling more cogent and focused. Mental Status Exam MSE Comments: This is an obese older white female with limited dress, grooming and eye contact. No abnormal movements. More cooperative with exam in less distress. Speech was normal rate and volume. Mood described as better affect congruent. Thought process more organized. Thought content: Patient denied any suicidal or homicidal ideation, there were no delusions reported or noted. She denied any auditory visual hallucinations. Attention and concentration were improved and memory was more reliable but none were formally tested. She is alert and oriented times 3. Insight and judgment are improving. Vitals/I&O/Wt Last Vital Signs Temp 98.8 F 12/11/19 20:58 Pulse 83 12/11/19 20:58 Resp 19 H 12/11/19 20:58 BP 118/72 12/11/19 20:58 Pulse Ox 95 12/11/19 20:58 Weight last 48 hrs Weight 89.981 kg Data NPU : 12/08/19 13:04 12/08/19 13:04 Micro: Microbiology 12/10/19 06:00 Urine Culture - Preliminary Urine,Clean Catch Microbiology 12/10/19 06:00 Urine,Clean Catch Urine Culture - Preliminary A&P Additional A&P Information (1) Acute psychosis: This is a 64-year-old white female with a recent hospitalization with a reported diagnosis of dementia and a long history of mood disorder who presents with altered mental status appearing manic open to medication trial. 1. Continue current medication. 2. Continue to 15-minute checks for safety. 3. Encouraged individual, group and milieu therapy. 4. Appreciate consult concerning diabetes management, hypertension management. We will follow recommendations. (2) Lalitha: (3) Dementia: Attestations NPU Medical Necessity Statement*: Inpatient hospitalization is medically necessary and the clinically appropriate intervention at this time. We will explore medication options and monitor and make changes as indicated. Likely length of stay 2-4 days. Coding Level of Care Code Acute Underground Production Foreperson for Leeanna Preston
[2019-12-11 11:20] LABS: Glucose Point of Care 303 mg/dL (70-110)
[2019-12-11 11:32] VITALS: BP 92/58
[2019-12-11 12:45] LABS: Glucose Point of Care 417 mg/dL (70-110)
[2019-12-11 14:00] VITALS: BP 121/70; PULSE 18; RESP 19; TEMP 36.2
--- NOTE | 2019-12-11 14:11 | P.PN_ITS ---
Subjective Subjective: Interval history: Reviewed Accu-Cheks, continues to be poorly controlled, will adjust schedule insulin. Noted tachycardia this morning, will add p.m. dose of metoprolol. Blood pressure seems to be normal without medication control. May need to hold oral antihypertensives to prevent hypotension. We will add sliding scale for more optimal blood glucose control. She is resting quietly in bed during my visit, no complaints. Per nursing staff no acute events. Medications: Reviewed: Yes Medication Review Details: Active Medications Generic Name Dose Route Start Last Admin Trade Name Freq PRN Reason Stop Dose Admin Acetaminophen 650 mg 12/08/19 15:50 Tylenol PO Q4H PRN MILD PAIN Amlodipine Besylat e 10 mg 12/09/19 13:45 12/11/19 11:32 Norvasc PO Not Given DAILY YAIMA Atorvastatin Calci um 20 mg 12/10/19 09:00 12/11/19 10:03 Lipitor PO 20 mg DAILY YAIMA Administration Benztropine Mesyla te 1 mg 12/08/19 15:50 Cogentin PO BID PRN Mild Extrapyramid al symptoms Camphor/Menthol/Ph enol 1 applic 12/08/19 15:50 12/09/19 14:20 Blistex TOPICAL 1 applic Q1H PRN Administration DRYNESS Clonidine HCl 0.1 mg 12/10/19 18:00 12/11/19 11:32 Catapres PO Not Given BID YAIMA Diphenhydramine HC l 50 mg 12/08/19 15:50 Benadryl IM ONCE PRN Severe Extrapyram idal Symptoms Diphenhydramine HC l 50 mg 12/08/19 15:50 Benadryl IM Q4H PRN Severe Aggression Donepezil HCl 5 mg 12/09/19 21:00 12/10/19 21:01 Aricept PO 5 mg BEDTIME YAIMA Administration Glimepiride 2 mg 12/10/19 07:00 12/11/19 06:33 Amaryl PO 2 mg BIDAC YAIMA Administration Haloperidol 5 mg 12/08/19 15:50 Haldol PO Q4H PRN AGITATION Haloperidol Lactat e 5 mg 12/08/19 15:50 Haldol Inj IM Q4H PRN Severe Aggression Hydroxyzine Pamoat e 50 mg 12/08/19 15:50 Vistaril PO Q6H PRN ANXIETY Insulin Aspart 20 unit 12/11/19 17:00 Novolog SUBCUT TIDAC YAIMA Insulin Detemir 50 unit 12/11/19 18:00 Levemir SUBCUT BID [facility] Levothyroxine Sodi um 75 mcg 12/10/19 09:00 12/11/19 10:04 Synthroid PO 75 mcg DAILY YAIMA Administration Lisinopril 40 mg 12/09/19 14:00 12/11/19 11:32 Prinivil PO Not Given DAILY [facility] Loperamide HCl 2 mg 12/08/19 15:50 Imodium Capsule PO Q6H PRN DIARRHEA Lorazepam 2 mg 12/08/19 15:50 Ativan IM Q4H PRN Severe Aggression Metformin HCl 1,000 mg 12/09/19 18:00 12/11/19 10:04 Glucophage PO 1,000 mg BID [facility] Administration Metoprolol Succina te 100 mg 12/11/19 06:00 12/11/19 06:33 Toprol Xl PO 100 mg QAM YAIMA Administration Nicotine 1 patch 12/08/19 15:50 Nicoderm 21 Mg P atch TRANSDERMA DAILY PRN NICOTINE WITHDRAW AL Nicotine Polacrile x 2 mg 12/08/19 15:50 Nicorette BUCCAL Q2H PRN NICOTINE WITHDRAW AL Olanzapine 5 mg 12/08/19 15:50 Zyprexa Zydis PO Q4H PRN Agitation/Psychos is Ondansetron HCl 4 mg 12/08/19 15:50 Zofran PO Q6H PRN NAUSEA AND VOMITI NG Paliperidone 3 mg 12/09/19 17:54 12/11/19 10:04 Invega PO 3 mg DAILY [facility] Administration Trazodone HCl 50 mg 12/08/19 15:50 Desyrel PO BEDTIME PRN SLEEP butorphanol [From Stadol] Allergy (Unknown, Verified 12/08/19 12:46) ALGY-Hives codeine Allergy (Verified 12/08/19 12:47) ALGY-Rash latex Allergy (Verified 12/08/19 12:47) ALGY-Rash Vitals/I&O/Wt Last Vital Signs Temp 98.2 F 12/11/19 06:00 Pulse 128 H 12/11/19 06:00 Resp 18 12/11/19 06:00 BP 92/58 12/11/19 11:32 Pulse Ox 95 12/11/19 06:00 Weight last 48 hrs Weight 89.981 kg Physical Exam Const: COMMON NORMALS: no acute distress, patient oriented x3 and alert GENERAL APPEARANCE: cooperative, comfortable and anxious NUTRITIONAL APPEARANCE: obese morbidly obese ORIENTATION/CONSCIOUSNESS: Yes awake HENMT: COMMON NORMALS: normocephalic, atraumatic, hearing grossly normal bi laterally and moist oral mucous membranes HEAD & SCALP: normocephalic and atraumatic TEETH & GINGIVA: Yes poor dentition Eye: COMMON NORMALS: Equal, round and reactive pupils present, EOMs intact bilaterally and conjunctivae normal CONJUNCTIVA: Yes conjunctivae normal PUPIL: Yes Equal, round and reactive pupils present Neck/C-Spine: COMMON NORMALS: full ROM GENERAL: Yes normal visual inspection and Yes trachea midline OTHER: -short, thick neck Resp: COMMON NORMALS: normal respiratory effort, No retractions, No use of accessory muscles and clear to auscultation bilaterally EFFORT & INSPECTION: Yes able to speak in complete sentences, Yes symmetric chest movement and No tachypneic AUSCULTATION: clear to auscultation bilaterally Cardio: COMMON NORMALS: regular rate, regular rhythm, S1 normal heart sound present, S2 normal heart sound present and No murmurs present (Cardio) RATE: regular rate RHYTHM: regular rhythm HEART SOUNDS: S1 normal heart sound present and S2 normal heart sound present GI: COMMON NORMALS: Normal to inspection, nondistended, normoactive bowel sounds present, Soft to palpation and non-tender INSPECTION: Yes central obesity and Yes scar (vertical scar crossing umbilicus) PALPATION: Yes Soft to palpation Extremity: COMMON NORMALS: normal to inspection, full ROM, no clubbing, cyanosis or edema and no pedal edema Neuro: COMMON NORMALS: patient oriented x3, moves all extremities, no focal motor deficits and no sensory deficits noted SENSORIUM/ORIENTATION: Yes alert Psych: COMMON NORMALS: cooperative ACTIVITY/MOTOR BEHAVIOR: Yes hyperactivity SPEECH: Yes rapid and Yes Pressured speech present MOOD & A FFECT: Yes anxious THOUGHT PROCESS: racing thoughts ATTENTION/CONCENTRATION: Yes attention grossly intact Skin: COMMON NORMALS: no rashes or lesions noted, no jaundice, no petechiae and no mottling GENERAL SKIN EXAM: no rashes or lesions noted Data : 12/08/19 13:04 12/08/19 13:04 Micro: Microbiology 12/10/19 06:00 Urine Culture - Preliminary Urine,Clean Catch A&P Assessment and plan (1) Acute psychosis: -acutely manic -per Psychiatry Status: Acute (2) Insulin dependent diabetes mellitus: -A1c-8.4/eAG-194 -Accucheks, hypoglycemia precautions, scheduled insulin, metformin, glimeperide (glipize not on formulary). Will increase Lantus and short acting insulin doses to optimize blood glucose control; add ISS -consistent carb diet -due to cost has been off insulin therapy Status: Chronic (3) HTN (hypertension): -continue to monitor vital signs; BP controlled, monitor for hypotension -continue Lisinopril 40 mg daily, Amlodipine 10 mg daily, metoprolol, clonidine; oral antihypertensives have been held due to low normal blood pressure but may need to continue beta-milly due to tachycardia Status: Chronic Qualifiers: Hypertension type: essential hypertension Qualified Code(s): I10 - Essential (primary) hypertension (4) Hypothyroidism: -continue levothyroxine Status: Chronic Qualifiers: Hypothyroidism type: unspecified Qualified Code(s): E03.9 - Hypothyroidism, unspecified (5) Morbid obesity: -BMI-39 kg/m2 Status: Chronic (6) Hyperlipidemia: -continue statin Status: Chronic Qualifiers: Hyperlipidemia type: unspecified Qualified Code(s): E78.5 - Hyperlipidemia, unspecified Additional A&P Information -repeat UA noted, contaminated sample, + bacteria; would not treat unless patient is symptomatic -Dispo: per psychiatry Attestations Medical Necessity Statement*: Patient requires hospitalization for continued management of acute psychosis with jc in addition to optimize blood glucose control. Time Spent in Patient Care: 16 - 35 minutes (>than 50% of time spent in counselling and/or direct pt care on unit) . Coding Level of Care Code Acute Department Of Mathematics Chair for [facility] Fwd Diagnoses Acute psychosis F23 Insulin dependent diabetes mellitus HTN (hypertension) I10 Hypertension type: essential hypertension Hypothyroidism E03.9 Hypothyroidism type: unspecified Morbid obesity E66.01 Hyperlipidemia E78.5 Hyperlipidemia type: unspecified
[2019-12-11 17:03] LABS: Glucose Point of Care 210 mg/dL (70-110)
[2019-12-11] MEDS: metoprolol succinate ER (24 HR) 50 mg Tablet 75 MG PO (17:39)
[2019-12-11 20:23] LABS: Glucose Point of Care 155 mg/dL (70-110)
[2019-12-11 20:58] VITALS: BP 118/72; PULSE 83; RESP 19; TEMP 37.1; O2SAT 95
[2019-12-11] MEDS: trazodone 50 mg Tablet PO (21:30)
[2019-12-11] MEDS: donepezil 5 MG Tablet PO (21:31)
[2019-12-12 06:00] VITALS: BP 135/81; PULSE 82; RESP 17; TEMP 37; O2SAT 96
[2019-12-12] MEDS: metoprolol succinate ER (24 HR) 50 mg Tablet 100 MG PO (07:05)
[2019-12-12] MEDS: glimepiride 2 mg Tablet PO ×2 (07:06→17:04)
[2019-12-12 07:16] LABS: Glucose Point of Care 170 mg/dL (70-110)
[2019-12-12] MEDS: metformin 500 mg Tablet 1000 MG PO ×2 (09:41→17:04)
[2019-12-12] MEDS: levothyroxine 25 mcg Tablet 75 MCG PO (09:41)
[2019-12-12] MEDS: paliperidone ER 3 mg Tablet PO (09:41)
[2019-12-12] MEDS: atorvastatin 40 mg Tablet 20 MG PO (09:42)
[2019-12-12 11:20] LABS: Glucose Point of Care 406 mg/dL (70-110)
--- NOTE | 2019-12-12 12:14 | P.PN_ITS ---
Subjective Subjective: Interval history: Remains hemodynamically stable, reviewed Accu- Cheks with noted improvement in glycemic control. Seen in the day room, did not want to eat lunch, has eye discomfort today so will start eye drops. Medications: Reviewed: Yes Medication Review Details: Active Medications Generic Name Dose Route Start Last Admin Trade Name Freq PRN Reason Stop Dose Admin Acetaminophen 650 mg 12/08/19 15:50 Tylenol PO Q4H PRN MILD PAIN Amlodipine Besylat e 10 mg 12/09/19 13:45 12/11/19 11:32 Norvasc PO Not Given DAILY YAIMA Atorvastatin Calci um 20 mg 12/10/19 09:00 12/12/19 09:42 Lipitor PO 20 mg DAILY YAIMA Administration Benztropine Mesyla te 1 mg 12/08/19 15:50 Cogentin PO BID PRN Mild Extrapyramid al symptoms Camphor/Menthol/Ph enol 1 applic 12/08/19 15:50 12/09/19 14:20 Blistex TOPICAL 1 applic Q1H PRN Administration DRYNESS Clonidine HCl 0.1 mg 12/10/19 18:00 12/11/19 11:32 Catapres PO Not Given BID YAIMA Dextrose 25 ml 12/11/19 17:06 D50w IVP ONCE PRN hypoglycemia prot ocol Protocol Dextrose 50 ml 12/11/19 17:06 D50w IVP PRN PRN hypoglycemia prot ocol Protocol Diphenhydramine HC l 50 mg 12/08/19 15:50 Benadryl IM ONCE PRN Severe Extrapyram idal Symptoms Diphenhydramine HC l 50 mg 12/08/19 15:50 Benadryl IM Q4H PRN Severe Aggression Donepezil HCl 5 mg 12/09/19 21:00 12/11/19 21:31 Aricept PO 5 mg BEDTIME YAIMA Administration Glimepiride 2 mg 12/10/19 07:00 12/12/19 07:06 Amaryl PO 2 mg BIDAC YAIMA Administration Glucagon 1 mg 12/11/19 17:06 Glucagen IM ONCE PRN Adult Acute Hypog lycemia Prot. Protocol Haloperidol 5 mg 12/08/19 15:50 Haldol PO Q4H PRN AGITATION Haloperidol Lactat e 5 mg 12/08/19 15:50 Haldol Inj IM Q4H PRN Severe Aggression Hydroxyzine Pamoat e 50 mg 12/08/19 15:50 Vistaril PO Q6H PRN ANXIETY Dextrose 500 mls @ 100 mls /hr 12/11/19 17:06 D5w IV ONCE PRN Adult Acute Hypog lycemia Prot Protocol Insulin Aspart 0 unit 12/11/19 18:00 12/12/19 11:37 Novolog SUBCUT 14 unit WM&BEDTIME YAIMA Administration Protocol Levothyroxine Sodi um 75 mcg 12/10/19 09:00 12/12/19 09:41 Synthroid PO 75 mcg DAILY YAIMA Administration Lisinopril 40 mg 12/09/19 14:00 12/11/19 11:32 Prinivil PO Not Given DAILY YAIMA Loperamide HCl 2 mg 12/08/19 15:50 Imodium Capsule PO Q6H PRN DIARRHEA Lorazepam 2 mg 12/08/19 15:50 Ativan IM Q4H PRN Severe Aggression Metformin HCl 1,000 mg 12/09/19 18:00 12/12/19 09:41 Glucophage PO 1,000 mg BID YAIMA Administration Metoprolol Succina te 100 mg 12/11/19 06:00 12/12/19 07:05 Toprol Xl PO 100 mg QAM YAIMA Administration Metoprolol Succina te 75 mg 12/11/19 18:00 12/11/19 17:39 Toprol Xl PO 75 mg QPM YAIMA Administration Nicotine 1 patch 12/08/19 15:50 Nicoderm 21 Mg P atch TRANSDERMA DAILY PRN NICOTINE WITHDRAW AL Nicotine Polacrile x 2 mg 12/08/19 15:50 Nicorette BUCCAL Q2H PRN NICOTINE WITHDRAW AL Olanzapine 5 mg 12/08/19 15:50 Zyprexa Zydis PO Q4H PRN Agitation/Psychos is Ondansetron HCl 4 mg 12/08/19 15:50 Zofran PO Q6H PRN NAUSEA AND VOMITI NG Paliperidone 3 mg 12/09/19 17:54 12/12/19 09:41 Invega PO 3 mg DAILY YAIMA Administration Trazodone HCl 50 mg 12/08/19 15:50 12/11/19 21:30 Desyrel PO 50 mg BEDTIME PRN Administration SLEEP butorphanol [From Stadol] Allergy (Unknown, Verified 05/21/20 12:46) ALGY-Hives codeine Allergy (Verified 12/08/19 12:47) ALGY-Rash latex Allergy (Verified 12/08/19 12:47) ALGY-Rash Vitals/I&O/Wt Last Vital Signs Temp 98.6 F 12/12/19 06:00 Pulse 82 12/12/19 06:00 Resp 17 12/12/19 06:00 BP 135/81 12/12/19 06:00 Pulse Ox 96 12/12/19 06:00 Weight last 48 hrs Weight 89.981 kg Physical Exam Const: COMMON NORMALS: no acute distress, patient oriented x3 and alert GENERAL APPEARANCE: cooperative, comfortable and anxious NUTRITIONAL APPEARANCE: obese morbidly obese ORIENTATION/CONSCIOUSNESS: Yes awake HENMT: COMMON NORMALS: normocephalic, atraumatic, hearing grossly normal bilaterally and moist oral mucous membranes HEAD & SCALP: normocephalic and atraumatic TEETH & GINGIVA: Yes poor dentition Eye: COMMON NORMALS: Equal, round and reactive pupils present, EOMs intact bilaterally and conjunctivae normal CONJUNCTIVA: Yes conjunctivae normal PUPIL: Yes Equal, round and reactive pupils present Neck/C-Spine: COMMON NORMALS: full ROM GENERAL: Yes normal visual inspection and Yes trachea midline OTHER: -short, thick neck Resp: COMMON NORMALS: normal respiratory effort, No retractions, No use of accessory muscles and clear to auscultation bilaterally EFFORT & INSPECTION: Yes able to speak in complete sentences, Yes symmetric chest movement and No tachypneic AUSCULTATION: clear to auscultation bilaterally Cardio: COMMON NORMALS: regular rate, regular rhythm, S1 normal heart sound present, S2 normal heart sound present and No murmurs present (Cardio) RATE: regular rate RHYTHM: regular rhythm HEART SOUNDS: S1 normal heart sound present and S2 normal heart sound present GI: COMMON NORMALS: Normal to inspection, nondistended, normoactive bowel sounds present, Soft to palpation and non-tender INSPECTION: Yes central obesity and Yes scar (vertical scar crossing umbilicus) PALPATION: Yes Soft to palpation Extremity: COMMON NORMALS: normal to inspection, full ROM, no clubbing, cyanosis or edema and no pedal edema Neuro: COMMON NORMALS: patient oriented x3, moves all extremities, no focal motor deficits and no sensory deficits noted SENSORIUM/ORIENTATION: Yes alert Psych: COMMON NORMALS: cooperative and speech normal ACTIVITY/MOTOR BEHAVI OR: Yes hyperactivity SPEECH: Yes normal speech MOOD & AFFECT: Yes anxious ATTENTION/CONCENTRATION: Yes attention grossly intact Skin: COMMON NORMALS: no rashes or lesions noted, no jaundice, no petechiae and no mottling GENERAL SKIN EXAM: no rashes or lesions noted Data : 12/08/19 13:04 12/08/19 13:04 Micro: Microbiology 12/10/19 06:00 Urine Culture - Final Urine,Clean Catch A&P Assessment and plan (1) Acute psychosis: -acutely manic -per Psychiatry Status: Acute (2) Insulin dependent diabetes mellitus: -A1c-8.4/eAG-194 -Accucheks, hypoglycemia precautions, scheduled insulin, metformin, glimeperide (glipize not on formulary). Continue ISS, decrease levemir to 10 units qhs, a spart 5 units with meals -consistent carb diet -due to cost has been off insulin therapy Status: Chronic (3) HTN (hypertension): -continue to monitor vital signs; BP controlled, monitor for hypotension - due to BP being controlled, will d/c ACEi, amlodipine; clonidine; continue beta-milly due to previously noted tachycardia Status: Chronic Qualifiers: Hypertension type: essential hypertension Qualified Code(s): I10 - Essential (primary) hypertension (4) Hypothyroidism: -continue levothyroxine Status: Chronic Qualifiers: Hypothyroidism type: unspecified Qualified Code(s): E03.9 - Hypothyroidism, unspecified (5) Morbid obesity: -BMI-34 kg/m2 Status: Chronic (6) Hyperlipidemia: -continue statin Status: Chronic Qualifiers: Hyperlipidemia type: unspecified Qualified Code(s): E78.5 - Hyperlipidemia, unspecified Additional A&P Information -repeat UA noted, contaminated sample, + bacteria; would not treat unless patient is symptomatic -Dispo: per psychiatry Attestations Medical Necessity Statement*: Patient requires hospitalization for continued inpatient psychiatric care. Time Spent in Patient Care: 16 - 35 minutes (>than 50% of time spent in counselling and/or direct pt care on unit) . 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
[2019-12-12 13:25] VITALS: BP 165/84; PULSE 91; RESP 20; TEMP 36.6; O2SAT 98
--- NOTE | 2019-12-12 15:15 | PC.SOCIAL ---
Important Medicare Message Reviewed Important Medicare Message with patient's spouse Thai Perez at [phone] due to patients dementia. Also reviewed with her verbally in her room. Updated page 2 and placed new copy in chart and with patient.
--- NOTE | 2019-12-12 16:36 | P.PN_ITS ---
Subjective NPU Subjective: Interval history: Татьяна presented today reporting that she is doing better. She did seem to not respond well to the sleeping medication that she took last night. She seemed to have been sleeping fairly well, but still had wanted something to sleep and she did not recover well with that medication. She was fairly lethargic for most of the day and overall looked worse for the wear compared to yesterday. I talked to staff and to her about avoiding sleeping medication. She seemed like she had slept fine before anyway. Otherwise, she still had clarity of thought, but just was more lethargic today. Mental Status Exam MSE Comments: This is an obese, older, white female, with adequate dress and grooming. Limited eye contact. No abnormal movements except for psychomotor retardation. Cooperative with exam in mild distress. Speech was decreased rate and volume. Mood described as okay, but kind out of it; affect congruent. Thought process, organized. Thought content: patient denied any suicidal or homicidal ideation, there were no delusions reported or noted, patient denied any auditory or visual hallucinations. Attention, concentration, and memory appeared intact but were not formally tested. Alert and oriented times three. Insight and judgment are improving. Vitals/I&O/Wt Last Vital Signs Temp 98.9 F 12/12/19 20:39 Pulse 87 12/12/19 20:39 Resp 19 H 12/12/19 20:39 BP 163/84 12/12/19 20:39 Pulse Ox 97 12/12/19 20:39 Weight last 48 hrs Weight 89.981 kg Data NPU : 12/08/19 13:04 12/08/19 13:04 Micro: Microbiology 12/10/19 06:00 Urine Culture - Final Urine,Clean Catch Microbiology 12/10/19 06:00 Urine,Clean Catch Urine Culture - Final A&P Additional A&P Information (1) Acute psychosis: This is a 64-year-old white female with a recent hospitalization with a reported diagnosis of dementia and a long history of mood disorder who is showing significant improvement with medication. 1. Continue current medication. 2. Continue to 15-minute checks for safety. 3. Encouraged individual, group and milieu therapy. (2) Lalitha: (3) Dementia: Attestations NPU Medical Necessity Statement*: Inpatient hospitalization is medically necessary and the clinically appropriate intervention at this time. We will explore medication options and monitor and make changes as indicated. Likely length of stay 1-3 days. 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
[2019-12-12 16:50] LABS: Glucose Point of Care 217 mg/dL (70-110)
[2019-12-12] MEDS: metoprolol succinate ER (24 HR) 50 mg Tablet 75 MG PO (17:04)
[2019-12-12] MEDS: artificial tears Op Soln 15 mL Btl 1 DROP EYE-BOTH (18:01)
[2019-12-12 20:18] LABS: Glucose Point of Care 204 mg/dL (70-110)
[2019-12-12 20:39] VITALS: BP 163/84; PULSE 87; RESP 19; TEMP 37.2; O2SAT 97
[2019-12-12] MEDS: donepezil 5 MG Tablet PO (21:30)
[2019-12-13 06:00] VITALS: BP 171/111; PULSE 100; RESP 19; TEMP 37.3; O2SAT 97
--- NOTE | 2019-12-13 06:06 | PC.NURSE ---
Nurse notified of patient's BP
[2019-12-13 06:07] LABS: Glucose Point of Care 189 mg/dL (70-110)
[2019-12-13] MEDS: glimepiride 2 mg Tablet PO ×2 (06:22→16:49)
[2019-12-13] MEDS: metoprolol succinate ER (24 HR) 50 mg Tablet 100 MG PO (06:22)
[2019-12-13 06:58] LABS: Glucose Point of Care 201 mg/dL (70-110)
[2019-12-13] MEDS: paliperidone ER 3 mg Tablet PO (08:50)
[2019-12-13] MEDS: levothyroxine 25 mcg Tablet 75 MCG PO (08:50)
[2019-12-13] MEDS: amlodipine 5 mg Tablet 2.5 MG PO (08:51)
[2019-12-13] MEDS: metformin 500 mg Tablet 1000 MG PO ×2 (08:51→16:49)
[2019-12-13] MEDS: atorvastatin 40 mg Tablet 20 MG PO (08:51)
--- NOTE | 2019-12-13 10:23 | P.PN_ITS ---
Subjective Subjective: Interval history: Blood pressure started to trend up, Accu-Cheks reviewed. Patient resting quietly in her room during my encounter, speech more appropriate, no acute overnight events reported. Medications: Reviewed: Yes Medication Review Details: Active Medications Generic Name Dose Route Start Last Admin Trade Name Freq PRN Reason Stop Dose Admin Acetaminophen 650 mg 12/08/19 15:50 Tylenol PO Q4H PRN MILD PAIN Amlodipine Besylat e 2.5 mg 12/13/19 09:00 12/13/19 08:51 Norvasc PO 2.5 mg DAILY YAIMA Administration Artificial Tears 1 drop 12/12/19 13:00 12/12/19 18:01 Isopto Tears EYE-BOTH 1 drop Q4H PRN Administration DRY EYE(S) Atorvastatin Calci um 20 mg 12/10/19 09:00 12/13/19 08:51 Lipitor PO 20 mg DAILY YAIMA Administration Benztropine Mesyla te 1 mg 12/08/19 15:50 Cogentin PO BID PRN Mild Extrapyramid al symptoms Camphor/Menthol/Ph enol 1 applic 12/08/19 15:50 12/09/19 14:20 Blistex TOPICAL 1 applic Q1H PRN Administration DRYNESS Dextrose 25 ml 12/11/19 17:06 D50w IVP ONCE PRN hypoglycemia prot ocol Protocol Dextrose 50 ml 12/11/19 17:06 D50w IVP PRN PRN hypoglycemia prot ocol Protocol Diphenhydramine HC l 50 mg 12/08/19 15:50 Benadryl IM ONCE PRN Severe Extrapyram idal Symptoms Diphenhydramine HC l 50 mg 12/08/19 15:50 Benadryl IM Q4H PRN Severe Aggression Donepezil HCl 5 mg 12/09/19 21:00 12/12/19 21:30 Aricept PO 5 mg BEDTIME YAIMA Administration Glimepiride 2 mg 12/10/19 07:00 12/13/19 06:22 Amaryl PO 2 mg BIDAC YAIMA Administration Glucagon 1 mg 12/11/19 17:06 Glucagen IM ONCE PRN Adult Acute Hypog lycemia Prot. Protocol Haloperidol 5 mg 12/08/19 15:50 Haldol PO Q4H PRN AGITATION Haloperidol Lactat e 5 mg 12/08/19 15:50 Haldol Inj IM Q4H PRN Severe Aggression Hydroxyzine Pamoat e 50 mg 12/08/19 15:50 Vistaril PO Q6H PRN ANXIETY Dextrose 500 mls @ 100 mls /hr 12/11/19 17:06 D5w IV ONCE PRN Adult Acute Hypog lycemia Prot Protocol Insulin Aspart 0 unit 12/11/19 18:00 12/13/19 07:26 Novolog SUBCUT 4 unit WM&BEDTIME YAIMA Administration Protocol Insulin Aspart 10 unit 12/13/19 12:00 Novolog SUBCUT TIDWM YAIMA Insulin Detemir 10 unit 12/12/19 21:00 12/12/19 21:30 Levemir SUBCUT 10 unit BEDTIME YAIMA Administration Levothyroxine Sodi um 75 mcg 12/10/19 09:00 12/13/19 08:50 Synthroid PO 75 mcg DAILY YAIMA Administration Lisinopril 10 mg 12/13/19 10:25 Prinivil PO BID YAIMA Loperamide HCl 2 mg 12/08/19 15:50 Imodium Capsule PO Q6H PRN DIARRHEA Lorazepam 2 mg 12/08/19 15:50 Ativan IM Q4H PRN Severe Aggression Metformin HCl 1,000 mg 12/09/19 18:00 12/13/19 08:51 Glucophage PO 1,000 mg BID YAIMA Administration Metoprolol Succina te 100 mg 12/11/19 06:00 12/13/19 06:22 Toprol Xl PO 100 mg QAM YAIMA Administration Metoprolol Succina te 75 mg 12/11/19 18:00 12/12/19 17:04 Toprol Xl PO 75 mg QPM YAIMA Administration Nicotine 1 patch 12/08/19 15:50 Nicoderm 21 Mg P atch TRANSDERMA DAILY PRN NICOTINE WITHDRAW AL Nicotine Polacrile x 2 mg 12/08/19 15:50 Nicorette BUCCAL Q2H PRN NICOTINE WITHDRAW AL Olanzapine 5 mg 12/08/19 15:50 Zyprexa Zydis PO Q4H PRN Agitation/Psychos is Ondansetron HCl 4 mg 12/08/19 15:50 Zofran PO Q6H PRN NAUSEA AND VOMITI NG Paliperidone 3 mg 12/09/19 17:54 12/13/19 08:50 Invega PO 3 mg DAILY YAIMA Administration Trazodone HCl 50 mg 12/08/19 15:50 12/11/19 21:30 Desyrel PO 50 mg BEDTIME PRN Administration SLEEP butorphanol [From Stadol] Allergy (Unknown, Verified 12/08/19 12:46) ALGY-Hives codeine Allergy (Verified 12/08/19 12:47) ALGY-Rash latex Allergy (Verified 12/08/19 12:47) ALGY-Rash Vitals/I&O/Wt Last Vital Signs Temp 99.2 F 12/13/19 06:00 Pulse 100 12/13/19 06:00 Resp 19 H 12/13/19 06:00 BP 171/111 12/13/19 06:00 Pulse Ox 97 12/13/19 06:00 Physical Exam Const: COMMON NORMALS: no acute distress, patient oriented x3 and alert GENERAL APPEARANCE: cooperative, comfortable and anxious NUTRITIONAL APPEARANCE: obese morbidly obese ORIENTATION/CONSCIOUSNESS: Yes awake HENMT: COMMON NORMALS: normocephalic, atraumatic, hearing grossly normal bilaterally and moist oral mucous membranes HEAD & SCALP: normocephalic and atraumatic TEETH & GINGIVA: Yes poor dentition Eye: COMMON NORMALS: Equal, round and reactive pupils present, EOMs intact bilaterally and conjunctivae normal CONJUNCTIVA: Yes conjunctivae normal PUPIL: Yes Equal, round and reactive pupils present Neck/C-Spine: COMMON NORMALS: full ROM GENERAL: Yes normal visual inspection and Yes trachea midline OTHER: -short, thick neck Resp: COMMON NORMALS: normal respiratory effort, No retractions, No use of accessory muscles and clear to auscultation bilaterally EFFORT & INSPECTION: Yes able to speak in complete sentences, Yes symmetric chest movement and No tachypneic AUSCULTATION: clear to auscultation bilaterally Cardio: COMMON NORMALS: regular rate, regular rhythm, S1 normal heart sound present, S2 normal heart sound present and No murmurs present (Cardio) RATE: regular rate RHYTHM: regular rhythm HEART SOUNDS: S1 normal heart sound present and S2 normal heart sound present GI: COMMON NORMALS: Normal to inspection, nondistended, normoactive bowel sounds present, Soft to palpation and non-tender INSPECTION: Yes central obesity and Yes scar (vertical scar crossing umbilicus) PALPATION: Yes Soft to palpation Extremity: COMMON NORMALS: normal to inspection, full ROM, no clubbing, cyanosis or edema and no pedal edema Neuro: COMMON NORMALS: patient oriented x3, moves all extremities, no focal motor deficits and no sensory deficits noted SENSORIUM/ORIENTATION: Yes alert Psych: COMMON NORMALS: Normal thought process present, cooperative and speech normal ACTIVITY/MOTOR BEHAVIOR: Yes hyperactivity SPEECH: Yes normal speech MOOD & AFFECT: Yes Flat affect present THOUGHT PROCESS: Normal thought process present ATTENTION/CONCENTRATION: Yes attention grossly intact Skin: COMMON NORMALS: no rashes or lesions noted, no jaundice, no petechiae and no mottling GENERAL SKIN EXAM: no rashes or lesions noted Data : 12/08/19 13:04 12/08/19 13:04 Micro: Microbiology 12/10/19 06:00 Urine Culture - Final Urine,Clean Catch A&P Assessment and plan (1) Acute psychosis: -acutely manic -per Psychiatry Status: Acute (2) Insulin dependent diabetes mellitus: -A1c-8.4/eAG-194 -Accucheks, hypoglycemia precautions, scheduled insulin, metformin, glimeperide (glipize not on formulary). Continue ISS, continue levemir to 10 units qhs, increase aspart to 10 units with meals -consistent carb diet -due to cost has been off insulin therapy Status: Chronic (3) HTN (hypertension): -continue to monitor vital signs; BP starting to trend up, monitor for hypotension -will resume lower dose of ACEi, continue low dose amlodipine and metoprolol; off clonidine Status: Chronic Qualifiers: Hypertension type: essential hypertension Qualified Code(s): I10 - Essential (primary) hypertension (4) Hypothyroidism: -continue levothyroxine Status: Chronic Qualifiers: Hypothyroidism type: unspecified Qualified Code(s): E03.9 - Hypothyroidism, unspecified (5) Morbid obesity: -BMI-34 kg/m2 Status: Chronic (6) Hyperlipidemia: -continue statin Status: Chronic Qualifiers: Hyperlipidemia type: unspecified Qualified Code(s): E78.5 - Hyperlipidemia, unspecified Additional A&P Information -repeat UA noted, contaminated sample, + bacteria; would not treat unless patient is symptomatic -Dispo: per psychiatry Attestations Medical Necessity Statement*: Patient requires hospitalization for continued inpatient psychiatric care for acute psychosis. Time Spent in Patient Care: 16 - 35 minutes (>than 50% of time spent in counselling and/or direct pt care on unit) . 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
[2019-12-13 11:27] LABS: Glucose Point of Care 260 mg/dL (70-110)
[2019-12-13] MEDS: lisinopril 10 mg Tablet PO ×2 (11:41→16:49)
[2019-12-13 14:00] VITALS: BP 163/95; PULSE 93; RESP 20; TEMP 37.2; O2SAT 98
--- NOTE | 2019-12-13 14:55 | P.PN_ITS ---
Subjective NPU Subjective: Interval history: Татьяна presented today being more oriented and interactive with the staff and other residents. She was calm and without distress. Fairly notable was the only time that she got really distressed was when discussion about home and her interactions with her was discussed. She reports that he is very impatient with her and frustrated and that they both have negative energy towards one another in general. It appears her greatest concern about going home is him being angry at her or frustrated with her and having a nasty tone with her which makes her very sad. She reports that she does get forgetful and loses her train of thought and then he gets mad at her. She reports that they both get angry with 1 another about not listening to 1 a nother. Mental Status Exam MSE Comments: This is an obese, older, white female, with adequate dress and g rooming. Limited eye contact. No abnormal movements except for improving psychomotor retardation. Cooperative with exam in mild distress. Speech was decreased rate and volume. Mood described as better; affect congruent. Thought process, organized. Thought content: patient denied any suicidal or homicidal ideation, there were no delusions reported or noted, patient denied any auditory or visual hallucinations. Attention, concentration, and memory appeared intact but were not formally tested. Alert and oriented times three. Insight and judgment are improving. Vitals/I&O/Wt Last Vital Signs Temp 98.2 F 12/13/19 22:00 Pulse 89 12/13/19 22:00 Resp 18 12/13/19 22:00 BP 165/104 12/13/19 22:00 Pulse Ox 99 12/13/19 22:00 Data NPU : 12/08/19 13:04 12/08/19 13:04 A&P Additional A&P Information (1) Acute psychosis: This is a 64-year-old white female with a recent hospitalization with a reported diagnosis of dementia and a long history of mood disorder who is showing significant improvement with medication. 1. Continue current medication. 2. Continue to 15-minute checks for safety. 3. Encouraged individual, group and milieu therapy. 4. Explore the existence of some day programs once Covid clears. (2) Lalitha: (3) Dementia: Attestations NPU Medical Necessity Statement*: Inpatient hospitalization is medically necessary and the clinically appropriate intervention at this time. We will explore medication options and monitor and make changes as indicated. Likely length of stay 1-2 days.Plan for discharge tomorrow. 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
--- NOTE | 2019-12-13 15:09 | PC.SOCIAL ---
patient's called earlier and expressed his concern of patient getting discharge too soon. the concern was given to treatment team, including nurse and doctor. He will come get patient and he will make sure she has a medicine minder and will keep meds in lock box.
[2019-12-13 16:33] LABS: Glucose Point of Care 318 mg/dL (70-110)
[2019-12-13] MEDS: metoprolol succinate ER (24 HR) 50 mg Tablet 75 MG PO (16:49)
[2019-12-13 20:25] LABS: Glucose Point of Care 242 mg/dL (70-110)
[2019-12-13] MEDS: donepezil 5 MG Tablet PO (20:56)
[2019-12-13 22:00] VITALS: BP 165/104; PULSE 89; RESP 18; TEMP 36.8; O2SAT 99
[2019-12-14 06:00] VITALS: BP 146/85; PULSE 85; RESP 16; TEMP 36.9; O2SAT 97
[2019-12-14] MEDS: glimepiride 2 mg Tablet PO (06:18)
[2019-12-14] MEDS: metoprolol succinate ER (24 HR) 50 mg Tablet 100 MG PO (06:18)
[2019-12-14 06:40] LABS: Glucose Point of Care 198 mg/dL (70-110)
[2019-12-14] MEDS: metformin 500 mg Tablet 1000 MG PO (08:07)
[2019-12-14] MEDS: levothyroxine 25 mcg Tablet 75 MCG PO (08:07)
[2019-12-14] MEDS: paliperidone ER 3 mg Tablet PO (08:07)
[2019-12-14] MEDS: lisinopril 10 mg Tablet PO (08:08)
[2019-12-14] MEDS: amlodipine 5 mg Tablet 2.5 MG PO (08:08)
[2019-12-14] MEDS: atorvastatin 40 mg Tablet 20 MG PO (08:09)
--- NOTE | 2019-12-14 10:21 | PC.SOCIAL ---
Important Medicare Message Reviewed updated and previously signed page 2 Important Medicare Message with patient. Had been reviewed with the spouse over the phone on 12/12/19 as well. Updated copy given to patient and placed in chart.
--- NOTE | 2019-12-14 10:23 | P.PN_ITS ---
Subjective Subjective: Interval history: Blood pressure better controlled, reviewed Accu- Cheks. Plan for discharge today. Seen in dayroom, alert, conversant, no apparent distress, no acute overnight events reported. Discussed with Dr. Camejo. Medications: Reviewed: Yes Medication Review Details: Active Medications Generic Name Dose Route Start Last Admin Trade Name Freq PRN Reason Stop Dose Admin Acetaminophen 650 mg 12/08/19 15:50 Tylenol PO Q4H PRN MILD PAIN Amlodipine Besylat e 5 mg 12/15/19 09:00 Norvasc PO DAILY YAIMA Artificial Tears 1 drop 12/12/19 13:00 12/12/19 18:01 Isopto Tears EYE-BOTH 1 drop Q4H PRN Administration DRY EYE(S) Atorvastatin Calci um 20 mg 12/10/19 09:00 12/14/19 08:09 Lipitor PO 20 mg DAILY YAIMA Administration Benztropine Mesyla te 1 mg 12/08/19 15:50 Cogentin PO BID PRN Mild Extrapyramid al symptoms Camphor/Menthol/Ph enol 1 applic 12/08/19 15:50 12/09/19 14:20 Blistex TOPICAL 1 applic Q1H PRN Administration DRYNESS Dextrose 25 ml 12/11/19 17:06 D50w IVP ONCE PRN hypoglycemia prot ocol Protocol Dextrose 50 ml 12/11/19 17:06 D50w IVP PRN PRN hypoglycemia prot ocol Protocol Diphenhydramine HC l 50 mg 12/08/19 15:50 Benadryl IM ONCE PRN Severe Extrapyram idal Symptoms Diphenhydramine HC l 50 mg 12/08/19 15:50 Benadryl IM Q4H PRN Severe Aggression Donepezil HCl 5 mg 12/09/19 21:00 12/13/19 20:56 Aricept PO 5 mg BEDTIME YAIMA Administration Glimepiride 2 mg 12/10/19 07:00 12/14/19 06:18 Amaryl PO 2 mg BIDAC YAIMA Administration Glucagon 1 mg 12/11/19 17:06 Glucagen IM ONCE PRN Adult Acute Hypog lycemia Prot. Protocol Haloperidol 5 mg 12/08/19 15:50 Haldol PO Q4H PRN AGITATION Haloperidol Lactat e 5 mg 12/08/19 15:50 Haldol Inj IM Q4H PRN Severe Aggression Hydroxyzine Pamoat e 50 mg 12/08/19 15:50 Vistaril PO Q6H PRN ANXIETY Dextrose 500 mls @ 100 mls /hr 12/11/19 17:06 D5w IV ONCE PRN Adult Acute Hypog lycemia Prot Protocol Insulin Aspart 0 unit 12/11/19 18:00 12/14/19 07:47 Novolog SUBCUT 4 unit WM&BEDTIME YAIMA Administration Protocol Insulin Aspart 15 unit 12/14/19 12:00 Novolog SUBCUT TIDWM YAIMA Insulin Detemir 20 unit 12/14/19 21:00 Levemir SUBCUT BEDTIME YAIMA Levothyroxine Sodi um 75 mcg 12/10/19 09:00 12/14/19 08:07 Synthroid PO 75 mcg DAILY YAIMA Administration Lisinopril 10 mg 12/13/19 10:25 12/14/19 08:08 Prinivil PO 10 mg BID YAIMA Administration Loperamide HCl 2 mg 12/08/19 15:50 Imodium Capsule PO Q6H PRN DIARRHEA Lorazepam 2 mg 12/08/19 15:50 Ativan IM Q4H PRN Severe Aggression Metformin HCl 1,000 mg 12/09/19 18:00 12/14/19 08:07 Glucophage PO 1,000 mg BID YAIMA Administration Metoprolol Succina te 100 mg 12/11/19 06:00 12/14/19 06:18 Toprol Xl PO 100 mg QAM YAIMA Administration Metoprolol Succina te 75 mg 12/11/19 18:00 12/13/19 16:49 Toprol Xl PO 75 mg QPM YAIMA Administration Nicotine 1 patch 12/08/19 15:50 Nicoderm 21 Mg P atch TRANSDERMA DAILY PRN NICOTINE WITHDRAW AL Nicotine Polacrile x 2 mg 12/08/19 15:50 Nicorette BUCCAL Q2H PRN NICOTINE WITHDRAW AL Olanzapine 5 mg 12/08/19 15:50 Zyprexa Zydis PO Q4H PRN Agitation/Psychos is Ondansetron HCl 4 mg 12/08/19 15:50 Zofran PO Q6H PRN NAUSEA AND VOMITI NG Paliperidone 3 mg 12/09/19 17:54 12/14/19 08:07 Invega PO 3 mg DAILY YAIMA Administration Trazodone HCl 50 mg 12/08/19 15:50 12/11/19 21:30 Desyrel PO 50 mg BEDTIME PRN Administration SLEEP butorphanol [From Stadol] Allergy (Unknown, Verified 12/08/19 12:46) ALGY-Hives codeine Allergy (Verified 12/08/19 12:47) ALGY-Rash latex Allergy (Verified 12/08/19 12:47) ALGY-Rash Vitals/I&O/Wt Last Vital Signs Temp 98.4 F 12/14/19 06:00 Pulse 85 12/14/19 06:00 Resp 16 12/14/19 06:00 BP 146/85 12/14/19 06:00 Pulse Ox 97 12/14/19 06:00 Physical Exam Const: COMMON NORMALS: no acute distress, patient oriented x3 and alert GENERAL APPEARANCE: cooperative, comfortable and anxious NUTRITIONAL APPEARANCE: obese morbidly obese ORIENTATION/CONSCIOUSNESS: Yes awake HENMT: COMMON NORMALS: normocephalic, atraumatic, hearing grossly normal bilaterally and moist oral mucous membranes HEAD & SCALP: normocephalic and atraumatic TEETH & GINGIVA: Yes poor dentition Eye: COMMON NORMALS: Equal, round and reactive pupils present, EOMs intact bilaterally and conjunctivae normal CONJUNCTIVA: Yes conjunctivae normal PUPIL: Yes Equal, round and reactive pupils present Neck/C-Spine: COMMON NORMALS: full ROM GENERAL: Yes normal visual inspection and Yes trachea midline OTHER: -short, thick neck Resp: COMMON NORMALS: normal respiratory effort, No retractions, No use of accessory muscles and clear to auscultation bilaterally EFFORT & INSPECTION: Yes able to speak in complete sentences, Yes symmetric chest movement and No tachypneic AUSCULTATION: clear to auscultation bilaterally Cardio: COMMON NORMALS: regular rate, regular rhythm, S1 normal heart sound present, S2 normal heart sound present and No murmurs present (Cardio) RATE: regular rate RHYTHM: regular rhythm HEART SOUNDS: S1 normal heart sound present and S2 normal heart sound present GI: COMMON NORMALS: Normal to inspection, nondistended, normoactive bowel sounds present, Soft to palpation and non-tender INSPECTION: Yes central obesity and Yes scar (vertical scar crossing umbilicus) PALPATION: Yes Soft to palpation Extremity: COMMON NORMALS: normal to inspection, full ROM, no clubbing, cyanosis or edema and no pedal edema Neuro: COMMON NORMALS: patient oriented x3, moves all extremities, no focal motor deficits and no sensory deficits noted SENSORIUM/ORIENTATION: Yes alert Psych: COMMON NORMALS: Normal thought process present, cooperative and speech normal ACTIVITY/MOTOR BEHAVIOR: Yes appropriate eye contact SPEECH: Yes normal speech MOOD & AFFECT: Yes Flat affect present THOUGHT PROCESS: Normal thought process present ATTENTION/CONCENTRATION: Yes attention grossly intact Skin: COMMON NORMALS: no rashes or lesions noted, no jaundice, no petechiae and no mottling GENERAL SKIN EXAM: no rashes or lesions noted Data : 12/08/19 13:04 12/08/19 13:04 A&P Assessment and plan (1) Acute psychosis: -acutely manic -per Psychiatry Status: Acute (2) Insulin dependent diabetes mellitus: -A1c-8.4/[id number] -Accucheks, hypoglycemia precautions, scheduled insulin, metformin, glimeperide (glipize not on formulary). Continue ISS, continue levemir to 10 units qhs, increase aspart to 10 units with meals -consistent carb diet -due to cost has been off insulin therapy Status: Chronic (3) HTN (hypertension): -continue to monitor vital signs; BP starting to trend up, monitor for hypotension -continue low dose amlodipine and metoprolol, lisinopril; off clonidine Status: Chronic Qualifiers: Hypertension type: essential hypertension Qualified Code(s): I10 - Essential (primary) hypertension (4) Hypothyroidism: -continue levothyroxine Status: Chronic Qualifiers: Hypothyroidism type: unspecified Qualified Code(s): E03.9 - Hypothyroidism, unspecified (5) Morbid obesity: -BMI-34 kg/m2 Status: Chronic (6) Hyperlipidemia: -continue statin Status: Chronic Qualifiers: Hyperlipidemia type: unspecified Qualified Code(s): E78.5 - Hyperlipidemia, unspecified Additional A&P Information -repeat UA noted, contaminated sample, + bacteria; would not treat unless patient is symptomatic -Dispo: per psychiatry -will sign off, please call with questions Attestations Medical Necessity Statement*: Discharge today per psychiatry Time Spent in Patient Care: 16 - 35 minutes (>than 50% of time spent in counselling and/or direct pt care on unit) . Coding Level of Care Code Acute Tax Map Technician for [facility] Fwd Exam Comprehensive Diagnoses Acute psychosis F23 Insulin dependent diabetes mellitus HTN (hypertension) I10 Hypertension type: essential hypertension Hypothyroidism E03.9 Hypothyroidism type: unspecified Morbid obesity E66.01 Hyperlipidemia E78.5 Hyperlipidemia type: unspecified
[2019-12-14 11:12] LABS: Glucose Point of Care 315 mg/dL (70-110)
--- NOTE | 2019-12-14 12:45 | PM.NDC ---
Diagnoses at Discharge Discharge Diagnosis (1) Acute psychosis: Status: Resolved (2) Insulin dependent diabetes mellitus: Status: Chronic (3) HTN (hypertension): Status: Chronic Qualifiers: Hypertension type: essential hypertension Qualified Code(s): I10 - Essential (primary) hypertension (4) Hypothyroidism: Status: Chronic Qualifiers: Hypothyroidism type: unspecified Qualified Code(s): E03.9 - Hypothyroidism, unspecified (5) Morbid obesity: Status: Chronic (6) Hyperlipidemia: Status: Chronic Qualifiers: Hyperlipidemia type: unspecified Qualified Code(s): E78.5 - Hyperlipidemia, unspecified Reason for Visit Reason for Visit: Reason For Visit: manic episode Brief History: History of Present Illness Татьяна Vang is a 64 year old female who presents today with a long history of mental health treatment going back some 14 years with [facility]. She presents with some discharge papers from [facility] with the current report of a diagnosis of dementia and recent initiation of donepezil. She presents as a fairly challenging historian as she is fairly frantic and focused on topics that do not make much sense. She continued to report wanting to speak to some scientologist figure stating that somehow their conversation would explain her current circumstance. She was able to talk some about past medications. She has prior diagnoses of ADHD and major depressive disorder recurrent severe. She continued to speak about not being able to focus. We discussed the risks, benefits and alternatives of initiating Invega for her apparent jc and she appeared to understand and agreed to proceed as is documented in this note. Psychiatric history: She endorses the recent hospitalization but could not endorse none other. She has a long history of mental health treatment but seemed to be fairly stable on medications and was functioning fairly. Substance abuse history: She denies significant addiction issues and none were noted the chart reviewed. The remainder of her history was difficult to uncover. We will attempt to get some collateral information with as she is reportedly . Hospital Course Hospital Course Татьяна presented to the emergency room with papers from a very recent stay at [facility] secondary to reports from her that she was unable to be managed at home. She was odd, mostly speaking in incoherent babble. There were reports about her not being safe, at this time. She was admitted to the neuropsychiatric unit for definitive treatment of these issues. On the unit, she slowly acclimated to the individual, group, and milieu therapies provided. She was started on Invega and she showed marked improvement. It became clear that she was struggling with her relationship with her and how they interact with one another; and here are concerns about dementia, but most of her issues on the unit had to do with the dynamic of her relationship with her . We discussed the medications and discussed ways to work on the situation at home, as well as hoping we can find an adult center for her to go to in the day, once the coronavirus slows down such that she can get some of her psychosocial needs met, in that setting, versus the unproductive situation at home. During the hospitalization, the patient had routine laboratory studies which were within normal limits, except for a few outliers. Additionally, he had a general medical evaluation which was within normal limits and revealed no new acute processes. Discharge Summary At the time of discharge the patient denied all lethality, was absent psychosis, and mood and anxiety were well managed. The patient endorsed a plan to follow-up with outpatient services, as recommended. She was evaluated and deemed to be absent credible lethality, and had achieved the maximum benefit from an inpatient hospitalization, and so she was discharged. Mental Status Exam MSE Comments: This is an obese, older, white female, with adequate dress, grooming, and eye contact. No abnormal movements, except for mild psychomotor retardation that is improving. Cooperative with exam in no acute distress. Speech was decreased rate and volume, but improving. Mood described as much better; affect congruent. Thought process, organized. Thought content: patient denied any suicidal or homicidal ideation, there were no delusions reported or noted, patient denied any auditory or visual hallucinations. Attention, concentration, and memory appeared intact but none were formally tested. She is alert and oriented times three. Insight and judgment are limited but improving. Discharge Data Data Completed and Pending: Labs from last 24 hours 12/14/19 12/14/19 12/13/19 11:04 06:35 20:20 POC Glucose 315 198 242 12/13/19 16:29 POC Glucose 318 Vitals: Last Vital Signs Temp 98.4 F 12/14/19 06:00 Pulse 85 12/14/19 06:00 Resp 16 12/14/19 06:00 BP 146/85 12/14/19 06:00 Pulse Ox 97 12/14/19 06:00 Discharge Plan Discharge Patient Disposition: Home, Self-Care Condition: Stable Prescriptions: New metoprolol succinate 50 mg Tablet Extended Release 24 Hr 75 mg PO QPM 30 Days Qty: 45 RF: 0 metoprolol succinate 50 mg Tablet Extended Release 24 Hr 100 mg PO QAM 30 Days Qty: 60 RF: 0 amlodipine 5 mg Tablet 5 mg PO DAILY 30 Days Qty: 30 RF: 0 lisinopril 10 mg Tablet 10 mg PO BID 30 Days Qty: 60 RF: 0 paliperidone 3 mg Tablet Extended Release 24hr 3 mg PO DAILY 30 Days Qty: 30 RF: 1 Continued glipizide 10 mg Tablet 10 mg PO BID RF: 0 levothyroxine 75 mcg Tablet 75 mcg PO DAILY 30 Days Qty: 30 RF: 0 metformin 1,000 mg Tablet 1,000 mg PO BID 30 Days Qty: 60 RF: 0 donepezil 5 mg Tablet 5 mg PO DAILY 30 Days Qty: 30 RF: 0 Changed pravastatin 40 mg Tablet 40 mg PO BEDTIME 30 Days Qty: 30 RF: 0 lisinopril 20 mg Tablet 20 mg PO DAILY 30 Days Qty: 30 RF: 0 Novolog U-100 Insulin aspart 100 unit/mL solution 15 unit SUBCUT TID 30 Days Qty: 15 RF: 0 Levemir U-100 Insulin 100 unit/mL solution 20 unit SUBCUT BEDTIME 30 Days Qty: 6 RF: 0 Discontinued clonidine HCl 0.1 mg Tablet 0.1 mg PO BID RF: 0 amlodipine 10 mg Tablet 10 mg PO DAILY RF: 0 metoprolol tartrate 50 mg Tablet See Rx Instructions .ROUTE .COMPLEX RF: 0 potassium chloride 20 mEq Tablet Extended Release 20 meq PO BID RF: 0 Discharge Orders: Discharge Order (Routine); Ordered 12/14/19 Ordered By: Miguel Camejo Referrals: [facility] [Other] (Initial psych evaluation will need to be done at the [place] location [facility] [place] [address] ) Kira Cantrell, YONATAN, DIANA [Referring] - Yong Clemente [Referring] - 4-7 days Discharge Diet: Diabetic Discharge Activity: Resume usual activity Patient Instructions: Metoprolol (By mouth), Lisinopril (By mouth), Amlodipine (By mouth), Paliperidone (By mouth), Bipolar Disorder (DIANA) Discharge Date/Time: 12/14/19 15:02 Discharge Attestations NPU Time Spent in Discharge Care*: less than 30 min Specific Discharge Activities: Specific discharge activities: educating patient, discussing with insurance case manager/social workers/dc planners, documenting/other paperwork and evaluating patient/reviewing data Coding Level of Care Code Acute Chemistry Faculty Member for g Fwd Diagnoses Acute psychosis F23 Insulin dependent diabetes mellitus HTN (hypertension) I10 Hypertension type: essential hypertension Hypothyroidism E03.9 Hypothyroidism type: unspecified Morbid obesity E66.01 Hyperlipidemia E78.5 Hyperlipidemia type: unspecified
[2019-12-14 13:19] VITALS: BP 146/85; PULSE 85; RESP 16; TEMP 36.9; O2SAT 97
== END 2019-12-14 15:02 | disposition home or self-care (01) | DRG 885 ==
LOC: ER 14:48 → NP 15:09
PROVIDERS: Emergency Medicine; Family Medicine; Admitting Provider Psychiatry & Neurology Psychiatry; Family Provider Family Medicine; Visit Provider Psychiatry & Neurology Psychiatry
DX: F23 Brief psychotic disorder (principal); F30.9 Manic episode, unspecified; F03.90 Unspecified dementia, unspecified severity, without behavioral disturbance, psychotic disturbance, mood disturbance, and anxiety; I10 Essential (primary) hypertension; E78.5 Hyperlipidemia, unspecified; E03.9 Hypothyroidism, unspecified; E11.65 Type 2 diabetes mellitus with hyperglycemia; E66.01 Morbid (severe) obesity due to excess calories; Z68.34 Body mass index [BMI] 34.0-34.9, adult; Z79.84 Long term (current) use of oral hypoglycemic drugs
CPT/HCPCS: 12345; 36415; 36416; 80053; 80306; 80307; 81001; 82962; 83036; 84443; 85025; 87086; 93005; 96372; 99284; J1815; J3486; J3490

== ENCOUNTER 2020-03-20 05:37 | Emergency (ER) | payer MEDICARE, SELFPAY ==
[2020-03-20 05:38] VITALS: BP 176/140; PULSE 103; RESP 24; TEMP 37; O2SAT 99; BMI 37.2
[2020-03-20 05:52] VITALS: BP 159/111; PULSE 103; RESP 18; O2SAT 98
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
[2020-03-20 06:27] LABS: Basophils % 0.5 %; Eosinophils # 0.1 10^3/uL (0.0-0.8); Eosinophils % 1.6 %; Hematocrit 45.7 % (37.0-47.0); Hemoglobin 15.3 g/dL (11.5-15.3); Lymphocytes % 27.4 %; Mean Corpuscular HGB Conc 33.5 g/dL (30.0-36.0); Mean Corpuscular Hemoglobin 29.9 pg (28.0-34.0); Mean Corpuscular Volume 89.3 fL (81-99); Mean Platelet Volume 9.6 fL (7.4-10.4); Monocytes # 0.5 10^3/uL (0.2-0.9); Monocytes % 7.3 %; Neutrophils # 4.68 10^3/uL (1.8-7.7); Neutrophils % 62.9 %; Nucleated Red Blood Cells % 0 %; Platelet Count 146 10^3/cmm (130-400); Red Blood Count 5.12 10^6/uL (4.1-5.3); Red Cell Distribution Width 12.9 % (12.1-15.1); White Blood Count 7.4 10^3/uL (4.0-10.0)
--- NOTE | 2020-03-20 06:40 | XRR_ITS ---
PROCEDURE INFORMATION: Exam: XR Chest, 1 View Exam date and time: 03/20/2020 6:57 AM Age: 65 years old Clinical indication: Cough and dyspnea; Additional info: Dyspnea/cough TECHNIQUE: Imaging protocol: XR of the chest Views: 1 view. COMPARISON: No relevant prior studies available. FINDINGS: Lungs: Unremarkable. No consolidation. Pleural space: Unremarkable. No pleural effusion. No pneumothorax. Heart/Mediastinum: Unremarkable. No cardiomegaly. Bones/joints: Unremarkable. XR/XR chest 1V portable [id number] IMPRESSION: No acute findings.
[2020-03-20] MEDS: LORazepam 2 mg/mL INJ 1 mL 1 MG IM (06:47)
[2020-03-20] MEDS: LORazepam 2 mg/mL INJ 1 mL 1 MG IVP (06:47)
[2020-03-20] MEDS: haloperidol inj 5 mg/mL INJ 1 mL IM (06:48)
--- NOTE | 2020-03-20 06:49 | PC.NURSE ---
PT CONTINUES TO HAVE OUTBURSTS AND IS AGGRESSIVE WITH STAFF. PT IS NOT MAKING SENSE. PT HAS RECEIVED 5MG HALDOL IM AND 1MG ATIVAN IM.
[2020-03-20 06:51] LABS: Alanine Aminotransferase 33 U/L (0-33); Albumin Level 4.3 g/dL (3.5-5.2); Alkaline Phosphatase 129 IU/L (35-105); Anion Gap 21.1 (5-19); Aspartate Amino Transferase 27 U/L (0-32); Blood Urea Nitrogen 7 mg/dL (8-23); Calcium 9.7 mg/dL (8.5-10.5); Carbon Dioxide 21 mmol/L (22-29); Chloride 106 mmol/L (98-107); Glomerular Filtration Rate 83.7 mL/min (90-130); Glucose 104 mg/dL (65-115); Osmolality Calculated 296 mOsm/kg (285-295); Potassium 3.1 mmol/L (3.5-5.1); Sodium 145 mmol/L (136-145); Total Protein 7.3 g/dL (6.6-8.7)
[2020-03-20 06:56] LABS: Acetaminophen < 5.0 ug/mL (10-30); Alcohol Level < 10 mg/dL (0-10); Salicylate < 0.3 mg/dL (3-10)
[2020-03-20 07:10] LABS: Amphetamines Screen Urine Negative (Negative); Barbiturates Screen Urine Negative (Negative); Benzodiazepines Screen Urine Negative (Negative); Cocaine Screen Urine Negative (Negative); Opiate Screen Urine Negative (Negative); PCP Screen Urine Negative (Negative); THC Screen Urine Negative (Negative)
[2020-03-20 07:13] LABS: Add Urine Microscopic? YES; Bilirubin Urine Neg (NEGATIVE); Blood Urine Neg (Negative); Glucose Urine UA Norm (Normal); Ketones Urine 1+ (Negative); Leukocyte Esterase Urine Negative (Negative); Nitrate Urine Negative (Negative); Protein Urine 3+ (Negative); Specific Gravity, Urine 1.015 (1.005-1.030); Urine Appearance Clear (CLEAR); Urine Color Yellow (Yellow); Urobilinogen Urine Norm (Negative); pH Urine 6.5 (5-7)
[2020-03-20 07:15] LABS: Add Urine Culture? No; Bacteria Urine TRACE; Mucus Urine 1+; RBC Urine 0-4 /hpf (0-2)
--- NOTE | 2020-03-20 07:15 | PC.NURSE ---
Patient sitting up in bed yellling at the hospital sitter. Repeat dose of haldol ordered. Patient found resting when returned to her room. 2nd dose on hold at this time.
[2020-03-20 08:58] VITALS: BP 148/80; PULSE 109; RESP 18; O2SAT 96
[2020-03-20] MEDS: potassium chloride ER 10 mEq Tablet 60 MEQ PO (10:00)
[2020-03-20 12:30] VITALS: BP 147/90; PULSE 70; O2SAT 98
[2020-03-20 12:30] LABS: Potassium 3.5 mmol/L (3.5-5.1)
[2020-03-20] MEDS: potassium chloride oral liq 20 mEq/15 mL UDC 40 MEQ PO (12:45)
[2020-03-20 13:07] VITALS: BP 126/78; PULSE 70; RESP 16; O2SAT 98
[2020-03-20 17:37] VITALS: BP 128/80; PULSE 70; RESP 15; O2SAT 98
== END 2020-03-20 17:37 | disposition other institution (70) ==
LOC: ER 06:18
PROVIDERS: Emergency Provider Family Medicine
DX: F41.9 Anxiety disorder, unspecified (principal); I10 Essential (primary) hypertension; E78.5 Hyperlipidemia, unspecified; E11.9 Type 2 diabetes mellitus without complications
CPT/HCPCS: 12345; 36415; 71045; 80053; 80306; 80307; 81001; 84132; 85025; 96372; 96374; 96375; 99282; 99285; J1630; J2060